=== PATIENT | male | born 1950 | race African-American/Black ===

== ENCOUNTER 2017-04-01 07:19 | Inpatient (IN) ==
--- NOTE | 2017-04-01 07:59 | EKG Report ---
Stationary ECG Study [facility] ER Test Date: 04/01/2017 7:45:44 AM Pat Name: KAEL NGO Department: Room: Gender: M Scalemaker: : 1950 Requested by: Eldon Bailey Order Number: [id number] Reading MD: ISABEL FANG Intervals [place] Rate: 88 P: 65 WA: 172 QRS: 119 QRSD: 152 T: -55 QT: 410 QTc: 456 Interpretive Statements SINUS RHYTHM LBBB Right axis deviation Electronically Signed On 04-01-17 12:29:34 CDT by ISABEL FANG [email or web address]
[2017-04-01 08:08] LABS: Basophils # 0.1 10*3/uL (0.0-0.2); Basophils % 0.7 % (0.0-0.8); Eosinophils # 0.1 10*3/uL (0.0-0.87); Eosinophils % 1.3 % (0.00-10.9); Hematocrit 43.6 VOL% (42.0-52.0); Hemoglobin 14.5 GM/DL (14.0-18.0); Immature Granulocytes % 0.3 %; Immature Granulocytes Absolute 0.03 #; Lymphocytes # 3.2 10*3/uL (1.4-4.0); Lymphocytes % 35.5 % (21.2-54.2); Mean Corpuscular HGB Conc 33.3 GM/DL (32-36); Mean Corpuscular Hemoglobin 28 PG (27-34); Mean Corpuscular Volume 82.6 FL (87-102); Mean Platelet Volume 12.3 FL (9.6-12.0); Monocytes # 0.5 10*3/uL (0.11-0.8); Monocytes % 5.4 % (1.7-12.7); Neutrophils # 5.1 10*3/uL (1.4-7.4); Neutrophils % 56.8 % (38.7-73.9); Platelet Count 177 T/CUMM (130-400); Red Blood Count 5.28 MC/CUMM (3.8-5.5); Red Cell Distribution Width 14.8 % (9.3-17.3)
[2017-04-01 08:16] LABS: Albumin 3.6 G/DL (3.4-5.0); Bilirubin,Total 1.4 MG/DL (0.2-1.0); Calcium 8.4 MG/DL (8.5-10.1); Total Protein 6.7 G/DL (6.4-8.3)
[2017-04-01 08:17] LABS: Osmolality,Calculated 284.8 MOS/KG (273-304); Potassium 3.4 MMOL/L (3.5-5.1)
--- NOTE | 2017-04-01 08:19 | CT Report ---
CT brain Indication: Syncope Comparison: None available Technique: Axial CT imaging of the brain is performed without contrast with 3 mm increments. Findings: No evidence of hemorrhage, mass mass effect midline shift or acute infarct seen. The brain parenchyma attenuation and differentiation appears within normal limits. The ventricles and cisterns are normal in caliber. No cranial or skull base abnormality is identified. Impression: No evidence of abnormality demonstrated. This CT exam was performed using one or more the following dose reduction techniques: Automated exposure control, adjustment of the MA and/or KV according to patient size, or use of iterative reconstruction technique. PROCEDURE INTERPRETED AT [facility] DEPARTMENT OF RADIOLOGY Final Report Signed by: Dr. Fritz Chowdhury
--- NOTE | 2017-04-01 08:34 | Emergency Department Note ---
Everette Barillas Manpreet, am scribing for, and in the presence of, Rajesh Hartley MD 08: 20. Odilia Barillas James D, MD, personally performed the services described in this documentation, ascribed by Sandeep Gaviria in my presence, and it is both accurate and complete 831 . Arrival - Arrival Chief Complaint: Syncope ED Nursing Triage Note: PT BROUGHT BY [facility] FOR EVALUATION OF SYNCOPE. PT WAS WEEDEATING WHEN HE BECAME DIZZY AND HAD SYNCOPAL EPISODE. PT DOES NOT RECALL ANYTHING AFTER FEELING DIZZY. ACCU CHECK PER EMS 140MG/DL. PT DENIES COMPLAINT AT THIS TIME. PT IS TILT NEGATIVE. Mode of Arrival: Stretcher Limitations: No Limitations Source: Patient - History of Present Illness HPI Narrative: Pt is a 66 y/o male who is brought to the ED via [facility] for further evaluation of a syncope earlier this AM. Pt was cutting grass when he became dizzy and had a syncopal episode. Pt does not recall anything after feeling dizzy. Pt denies Abd pain, palpations, fever, N/V/D and is AAO x4 which is his baseline. No other pains/complaints reported to the ED. Onset (ago): hour(s) Consistency: now resolved Severity: moderate Severity scale (1-10): 3 Allergies/Adverse Reactions: Allergies Allergy/AdvReac Type Severity Reaction Status Date / Time No Known Allergies Allergy Verified 04/01/17 07:30 Home Medications: Home Medications Medication Instructions Recorded Confirmed Type No Known Home Medications [No 04/01/17 04/01/17 History Known Home Medications] Review of System - Review of System 12 point system: reviewed and no additional remarkable complaints except as stated - Review of System Constitutional: Absent: chills, diaphoresis, fever Head/Ears/Nose/Throat: Absent: sore throat Respiratory: Absent: cough, respiratory distress Cardiovascular: Present: syncope. Absent: chest pain, dyspnea on exertion Gastrointestinal: Absent: abdominal pain, nausea, vomiting Genitourinary male: Absent: dysuria Musculoskeletal: Absent: arm pain, back pain Neurological: Present: other (Dizziness). Absent: headache, weakness Medical,Surgical,& Family Hx - Social History Smoking Status: Never smoker Frequency of Alcohol Use: Occasionally Type of Drug Use: None Exam Vital Signs: Vital Signs Temperature 96.9 F L 04/01/17 07:19 Pulse Rate 93 H 04/01/17 07:25 Respiratory Rate 18 04/01/17 07:19 Blood Pressure 160/84 04/01/17 07:25 O2 Sat by Pulse Oximetry 98 04/01/17 07:19 GENERAL: This is a well-nourished well-developed black male in no apparent distress. VITAL SIGNS: Reviewed HEENT: Head is atraumatic and normocephalic. Pupils are equal round react to light. Extraocular movements are intact. Oropharynx is benign with moist mucous membranes. NECK: Neck is soft and supple without tenderness. There are no masses. There is no lymphadenopathy. LUNGS: Lungs are clear to auscultation. Chest rises symmetrically. There is no chest wall tenderness. CV: Heart is regular rate and rhythm without murmurs or rubs. S3 gallop is present. ABDOMEN: Abdomen is soft, nontender to palpation. There are no abdominal abnormal masses palpated. There is no organomegaly. Bowel sounds are present and active. SKIN: Skin is warm and dry. No rash. EXTREMITIES: Patient has full range of motion without tenderness. There is no pedal edema. NEUROLOGIC: Awake alert and oriented 4. Cranial nerves II through XII are grossly intact. Motor is 5 over 5 in all extremities bilaterally. Results - Labs CBC & BMP: 04/01/17 07:36 04/01/17 07:36 Lab Results: I have reviewed the patients labs - EKG EKG results: interpreted by ERMD - Impressions EKG: Normal sinus rhythm with a rate of 88, left bundle branch block, no further interpretation possible. - Diagnostic Findings Procedure: Chest x-ray: image reviewed by me, CT: image reviewed by me (CT head : No acute intracranial lesion or hemorrhage.) Disposition Clinical Impression: Syncope, New onset left bundle branch block (LBBB) Case discussed with: patient, patient's family Disposition: Still a Patient Condition: Stable
[2017-04-01 08:37] LABS: Magnesium 2.4 MG/DL (1.8-2.4); Troponin I Only 0.018 NG/ML (0.00-0.045)
[2017-04-01] MEDS ORDERED: METOPROLOL TARTRATE 5 MG/5 ML VIAL IV STA (08:38)
[2017-04-01] MEDS ORDERED: METOPROLOL TARTRATE 5 MG/5 ML VIAL IV ONE (08:43)
[2017-04-01 09:01] LABS: Barbiturates Screen,Urine Negative (Negative); Benzodiazepines Screen,Urine Negative (Negative); Cannabinoid Screen,Urine Negative (Negative); Opiate Screen,Urine Negative (Negative); Phencyclidine Screen,Urine Negative (Negative)
--- NOTE | 2017-04-01 10:05 | Hospitalist History & Physical ---
<Gifty Darby - Last Filed: 04/01/17 10:19> Assessment and Plan - Time spent with patient Time spent with patient: Greater than 30 minutes (1) Syncope Status: Acute Assessment and plan: Will admit. ECHO is in progress in ED. Will order a.m. labs. Will order serial troponin and repeat EKG. Order Carotid doppler. Consult Cardiology. Current Visit: Yes (2) New onset left bundle branch block (LBBB) Status: Acute Current Visit: Yes History of Present Illness Chief complaint: Syncope History of present illness: Mr. Naylor is a 66 year old black male without any significance in PMHx; presented to the ED via EMS from [facility] where he was working for further evaluation of syncope. Patient reports he was cutting grass started feeling dizzy and "just blacked out". Patient reports unsure of how long he was out thinking it was only for a minute or less. He denies feeling short of breath. Denies chest pain, fever, chills, nausea, vomiting. IN the ED: HEAD CT: No evidence of abnormality demonstrated. EKG: normal sinus rhythm with rate 88; left bundle branch block. LABS: Troponin 0.018; K 3.4; Creatinine 1.40; BUN 11 ; Ca 8.4. Drug screen negative. Patient denies any medical history problems; denies any surgeries. Family Hx: HTN; DM. After discussion with Dr Harltey in the ED and Dr Lawson with Hospital Medicine, it was agreed to admit patient to Telemetry floor for further evaluation. There are no home medications to be reviewed or reconciled. Home Medications Medication Instructions Recorded Confirmed Type No Known Home Medications [No 04/01/17 04/01/17 History Known Home Medications] Allergies Allergy/AdvReac Type Severity Reaction Status Date / Time No Known Allergies Allergy Verified 04/01/17 07:30 Medical,Surgical,& Family Hx - Surgical History Surgical History: noncontributory - Family History Family History: Reports;: Family Diabetes, Family Hypertension - Social History Smoking Status: Never smoker Frequency of Alcohol Use: Rarely Type of Drug Use: None Lives With:: Children (lives with son) Functional capacity: independent ambulation Review of systems: ROS completed and pertinent positives and negatives in the HPI Exam - Constitutional Vitals: Period Temp Pulse Resp BP Sys/Larios Pulse Ox Last 24 Hr 96.8 F-96.9 F 93-101 18-18 160-166/84-94 98 General appearance: normal weight, no acute distress - Head Head exam: Present: normal inspection - Eye Eye exam: Present: EOMI Pupils: Present: JENNY - Neck Neck exam: Present: normal inspection. Absent: thyromegaly - Respiratory Respiratory exam: Present: clear to auscultation bilaterally - Cardiovascular Cardiovascular exam: Present: gallop (S3), regular rate and rhythm - GI/Abdominal GI/Abdominal exam: Present: normal bowel sounds, soft. Absent: tenderness, rebound - Extremities Exam Extremities exam: Present: full ROM. Absent: edema - Neurological Exam Neurological exam: Present: alert, oriented X3, CN II-XII intact - Psychiatric Psychiatric exam: Present: normal affect, normal mood. Absent: agitated, anxious - Skin Skin exam: Present: normal color, warm, dry Results - Labs CBC & BMP: 04/01/17 07:36 04/01/17 07:36 Lab Results: I have reviewed the past 24 hour labs - Diagnostic Findings Procedure: CT: report reviewed by me (head: no evidence of abnormality demonstracted.) <Triston Lawson - Last Filed: 04/01/17 11:16> History of Present Illness History of present illness: Mr. Naylor is a 66 year old male who is being admitted to the hospital today with the first episode of syncope. I have interviewed the patient, examined the patient, and reviewed all available laboratory tests and x-ray results. I agree with the assessment and plans as outlined by the nurse practitioner. Exam - Constitutional Vitals: Period Temp Pulse Resp BP Sys/Larios Pulse Ox Last 24 Hr 96.8 F-96.9 F 72-101 18-18 143-168/74-104 98-100 Results - Labs CBC & BMP: 04/01/17 07:36 04/01/17 07:36
[2017-04-01] MEDS ORDERED: ACETAMINOPHEN 325 MG TABLET PO PRN (10:11)
[2017-04-01] MEDS ORDERED: DOCUSATE SODIUM 100 MG CAPSULE PO PRN (10:11)
[2017-04-01] MEDS ORDERED: ONDANSETRON 4 MG/2 ML VIAL IV PRN (10:11)
[2017-04-01] MEDS ORDERED: MORPHINE 2 MG/1 ML SYRINGE IV PRN (10:11)
[2017-04-01] MEDS ORDERED: SODIUM CHLORIDE 0.9% 1,000 ML IV SCH (10:30)
[2017-04-01 16:23] LABS: Apearance,Urine CLEAR (Clear); Bilirubin,Urine Negative (Negative); Blood, Urine Small mg/dL (Negative); Glucose,Urine (UA) Negative (Negative); Ketones,Urine Negative (Negative); Mucus,Urine Occasional /LPF (Occasional); Nitrite,Urine Negative (Negative); Protein,Urine Negative; RBC,Urine 1 /HPF (0-4); Urine Color Yellow (Yellow); Urine Specific Gravity 1.011 (1.001-1.035); Urine Urobilinogen < 2.0 EU/DL (0.2-1.0); WBC,Urine 1 /HPF (0-6)
--- NOTE | 2017-04-01 17:07 | Cardiology Consult Note ---
Assessment and Plan - Time spent with patient Time spent with patient: Greater than 30 minutes (due to assessment, plan, and documentation) (1) Syncope Status: Acute Assessment and plan: See plan of care listed below. Current Visit: Yes (2) New onset left bundle branch block (LBBB) Status: Acute Assessment and plan: See plan of care listed below. Current Visit: Yes (3) Family history of coronary artery disease in father Status: Chronic Assessment and plan: See plan of care listed below. Current Visit: Yes History of Present Illness - Data of Consult Patient: new to practice Consult date: 04/01/17 Requesting Physician: Gifty Darby - Consult Narrative Reason for consult: syncope, LBBB History of present illness: Compliance Reviewer: iqra Leroy Mr. Naylor is a 66 year old male with no significant medical history. He takes no regular medications. Risk factors are significant for: age , family history of CAD. He is a lifetime nonsmoker. He denies a history of hypertension, diabetes, dyslipidemia, cancer, or stroke. Mr. Naylor presented to the emergency room via EMS after having a syncopal episode while working outside at [facility]. He was weedeating when he began to feel dizzy and reports he woke up on the ground surrounded by some of his coworkers. He reports he doesn't think he was out longer than a few minutes. He reports he felt dizzy when he first came to, but had no neurological deficits. He denies loss of bowel or bladder function and denies biting the inside of his cheek or tongue. He denies chest pain, palpitations, shortness of breath, fever, chills, nausea, vomiting, diarrhea, constipation, headache, or blurry vision. He tells me prior to today, he had been in his usual state of health and had no recent illnesses or complaints. Upon arrival, his head CT was unremarkable. EKG notes sinus rhythm with left bundle branch block. Initial troponin normal. Repeat troponin 0.141. Creatinine is 1.4. Potassium 3.4. Urinalysis is unremarkable and urine drug screen is negative. CBC is grossly unremarkable with stable H&H. ASSESSMENT/PLAN: 1. SYNCOPE - Will continue to cycle cardiac biomarkers and EKGs. Schedule for nuclear stress testing in the morning. Carotid dopplers and echocardiogram pending. 2. LEFT BUNDLE BRANCH BLOCK - Unsure whether new or old. No prior records at our facility. Will assume new. Echocardiogram is pending. After discussing with Dr. Leroy, will keep NPO after midnight and plan for nuclear stress testing in the morning. If his cardiac workup is unremarkable, would possibly be okay to discharge home with event recorder to follow up in clinic. Will develop further plan as evaluation unfolds. 3. FAMILY HISTORY OF CAD - He reports his father from a massive IA in his 60s. CC: Triston Lawson - Home Medications and Allergies Home Medications: Home Medications Medication Instructions Recorded Confirmed Type No Known Home Medications [No 04/01/17 04/01/17 History Known Home Medications] Allergies/Adverse Reactions: Allergies Allergy/AdvReac Type Severity Reaction Status Date / Time No Known Allergies Allergy Verified 04/01/17 07:30 12 point system: reviewed and no additional remarkable complaints except as stated Medical,Surgical,& Family Hx - Medical History Cardio: No history of: CAD, Hypertension, IA Endocrine: No history of: Diabetes Mellitus (NIDDM), Dyslipidemia Respiratory: No history of: COPD Gastrointestinal: No history of: GERD Other: No history of: Cancer - Surgical History Surgical History: noncontributory - Family History Family History: Reports;: Family Diabetes, Family Hypertension - Social History Smoking Status: Never smoker Frequency of Alcohol Use: Rarely Type of Drug Use: None Marital Status: Single Functional capacity: independent ambulation Physical Examination Vital Signs Temp Pulse Resp BP Pulse Ox 96.9 F L 93 H 18 160/84 98 04/01/17 07:19 04/01/17 07:19 04/01/17 07:19 04/01/17 07:19 04/01/17 07:19 Exam: General appearance: Pleasant and cooperative. Overweight, no acute distress. Head exam: Present: normal inspection, normocephalic, atraumatic. Absent: hematoma, laceration Eye exam: Present: EOMI. Absent: conjunctival injection, nystagmus, periorbital swelling, scleral icterus, laceration to eyelids Pupils: Present: PERRL. Absent: constricted, dilated, fixed, irregular, unequal ENT exam: Present: normal exam, normal external ear exam Neck exam: Present: normal inspection. Absent: lymphadenopathy, meningismus, tenderness, thyromegaly Respiratory exam: Present: clear to auscultation bilaterally. Absent: accessory muscle use, chest wall tenderness, rales, rhonchi, wheezing. Cardiovascular exam: Present: regular rate and rhythm. Absent: JVD, rubs, murmur GI/Abdominal exam: Present: normal bowel sounds, soft. Absent: distended, firm , guarding, hernia, mass, tenderness, rebound. Extremities exam: Present: normal inspection, normal capillary refill. Upper extremity pulses 2+. Lower extremity pulses 2+. Absent: calf tenderness, edema Musculoskeletal: Present: No Fluid Collection, No Pain, Normal Range of Motion Back exam: Present: normal inspection. Absent: muscle spasm, vertebral tenderness Neurological exam: Present: alert, oriented X3, grossly intact without resting or essential tremor Psychiatric exam: Present: normal affect, normal mood Skin exam: Present: normal color, warm, dry, intact. Absent: cyanosis, diaphoretic, rash, urticaria Result/EKG - Labs CBC & BMP: 04/01/17 07:36 04/01/17 07:36 Lab Results: I have reviewed the past 24 hour labs Labs: Laboratory Results - last 24 hr 04/01/17 04/01/17 04/01/17 07:36 07:36 07:36 WBC 9.0 RBC 5.28 Hgb 14.5 Hct 43.6 MCV 82.6 L MCH 28 MCHC 33.3 RDW 14.8 Plt Count 177 MPV 12.3 H Neut % (Auto) 56.8 Lymph % (Auto) 35.5 Iron % (Auto) 5.4 Eos % (Auto) 1.3 Baso % (Auto) 0.7 Neut # (Auto) 5.1 Lymph # (Auto) 3.2 Iron # (Auto) 0.5 Eos # (Auto) 0.1 Baso # (Auto) 0.1 Immature Gran % 0.3 Nucleated RBC % 0.0 Immature Gran # 0.03 Nucleated RBCs # 0.00 Immature Plt Fraction 0.0 Sodium 144 Potassium 3.4 L Chloride 107 Carbon Dioxide 30 Anion Gap 10.4 BUN 11 Creatinine 1.40 H GFR Calculation 66 BUN/Creatinine Ratio 7.00 Glucose 94 Calculated Osmolality 284.8 Calcium 8.4 L Magnesium Total Bilirubin 1.40 H AST 28 ALT 29 Alkaline Phosphatase 59 Troponin I Total Protein 6.7 Albumin 3.6 Globulin 3.1 Albumin/Globulin Ratio 1.1 Urine Color Urine Appearance Urine pH Ur Specific [place] Urine Protein Urine Glucose (UA) Urine Ketones Urine Blood Urine Nitrate Urine Bilirubin Urine Urobilinogen Urine Leukocytes Urine RBC Urine WBC Urine Mucus Ur Culture Indicated? Urine Opiates Screen Negative Ur Barbiturates Screen Negative Ur Phencyclidine Scrn Negative U Amphetamine/Methamph Negative U Benzodiazepines Scrn Negative U Cocaine Metab Screen Negative U Cannabinoids Screen Negative 04/01/17 04/01/17 04/01/17 07:36 07:56 13:11 WBC RBC Hgb Hct MCV MCH MCHC RDW Plt Count MPV Neut % (Auto) Lymph % (Auto) Iron % (Auto) Eos % (Auto) Baso % (Auto) Neut # (Auto) Lymph # (Auto) Iron # (Auto) Eos # (Auto) Baso # (Auto) Immature Gran % Nucleated RBC % Immature Gran # Nucleated RBCs # Immature Plt Fraction Sodium Potassium Chloride Carbon Dioxide Anion Gap BUN Creatinine GFR Calculation BUN/Creatinine Ratio Glucose Calculated Osmolality Calcium Magnesium 2.4 Total Bilirubin AST ALT Alkaline Phosphatase Troponin I 0.018 0.141 H D Total Protein Albumin Globulin Albumin/Globulin Ratio Urine Color Yellow Urine Appearance Clear Urine pH 7.0 Ur Specific [place] 1.011 Urine Protein Negative Urine Glucose (UA) Negative Urine Ketones Negative Urine Blood Small Urine Nitrate Negative Urine Bilirubin Negative Urine Urobilinogen < 2.0 H Urine Leukocytes Negative Urine RBC 1 Urine WBC 1 Urine Mucus Occasional Ur Culture Indicated? Not indicated Urine Opiates Screen Ur Barbiturates Screen Ur Phencyclidine Scrn U Amphetamine/Methamph U Benzodiazepines Scrn U Cocaine Metab Screen U Cannabinoids Screen - EKG EKG results: interpreted by me, sinus rhythm (left bundle branch block )
--- NOTE | 2017-04-01 18:20 | ECHO Report ---
[facility] Exam Date: 04/01/2017 08:58 Referring Physician: Technologist: chase Whaley ARDMS, RVT Age: 66 Ht (in): 68 Wt (lb): 165 Gender: M Exam Location: [facility] Echo Indications: Syncope and collapse, New LBBB BP: 154 / 88 HR: 78 Rhythm: Sinus Technical Quality: IMPRESSIONS Normal left ventricular cavity size. Normal left ventricular wall thickness. Moderate global hypokinesis, with abnormal septal motion. Estimated left ventricular ejection fraction 30%. Grade 3 diastolic dysfunction. Mild biatrial enlargement. Mild eccentric mitral regurgitation. Mild aortic valve insufficiency. Mild pulmonic valve insufficiency MEASUREMENTS (Male / Female) Normal Values 2D ECHO LV Diastolic Diameter PLAX 4.6 cm 4.2 - 5.9 / 3.9 - 5.3 cm LV Systolic Diameter PLAX 3.9 cm LV Fractional Shortening PLAX 16.1 % IVS Diastolic Thickness 1.1 cm 0.6 - 1.0 / 0.6 - 0.9 cm LVPW Diastolic Thickness 1.1 cm 0.6 - 1.0 / 0.6 - 0.9 cm RV Internal Dim ED PLAX 2.7 cm Aortic Root Diameter 3.4 cm LA Systolic Diameter LX 2.9 cm 3.0 - 4.0 / 2.7 - 3.8 cm DOPPLER TR Peak Velocity 252.0 cm/s TR Peak Gradient 25.4 mmHg FINDINGS Left Ventricle Normal left ventricular cavity size. Normal left ventricular wall thickness. Moderate global hypokinesis, with abnormal septal motion. Estimated left ventricular ejection fraction 30%. Grade 3 diastolic dysfunction. Right Ventricle The right ventricle is normal in size and function. Right Atrium The right atrium is mildly enlarged. Left Atrium The left atrium is mildly dilated Mitral Valve Morphologically normal mitral valve. Mild eccentric mitral valve regurgitation. Aortic Valve Structurally normal aortic valve, with mild insufficiency, without stenosis. Tricuspid Valve Morphologically normal tricuspid valve. Mild tricuspid valve regurgitation. Tricuspid regurgitation velocities suggest a PAP of 25 mmHg plus right atrial pressure. Pulmonic Valve Morphologically normal pulmonic valve. Mild pulmonary valve regurgitation. Pericardium Normal pericardium without effusion. Aorta Normal ascending aorta dimension. Patrice Leroy (Electronically Signed) Final Date: 01 April 2017 18:19
[2017-04-01] MEDS ORDERED: ASPIRIN 325 MG TABLET PO ONE (19:33)
[2017-04-01 23:54] LABS: Troponin I Only 0.098 NG/ML (0.00-0.045)
[2017-04-02 04:48] LABS: Basophils # 0.1 10*3/uL (0.0-0.2); Basophils % 0.6 % (0.0-0.8); Eosinophils # 0.1 10*3/uL (0.0-0.87); Eosinophils % 1.3 % (0.00-10.9); Hemoglobin 14.1 GM/DL (14.0-18.0); Immature Granulocytes % 0.2 %; Immature Granulocytes Absolute 0.02 #; Lymphocytes # 2.5 10*3/uL (1.4-4.0); Lymphocytes % 28.9 % (21.2-54.2); Mean Corpuscular HGB Conc 33.6 GM/DL (32-36); Mean Corpuscular Hemoglobin 28 PG (27-34); Mean Platelet Volume 12.7 FL (9.6-12.0); Monocytes # 0.7 10*3/uL (0.11-0.8); Monocytes % 8.1 % (1.7-12.7); Neutrophils # 5.2 10*3/uL (1.4-7.4); Neutrophils % 60.9 % (38.7-73.9); Platelet Count 171 T/CUMM (130-400); Red Blood Count 5.12 MC/CUMM (3.8-5.5); Red Cell Distribution Width 14.9 % (9.3-17.3); White Blood Count 8.5 T/CUMM (4-12)
[2017-04-02 05:40] LABS: Magnesium 2.7 MG/DL (1.8-2.4); Potassium 3.9 MMOL/L (3.5-5.1); Risk Ratio 2.43; Thyroid Stimulating Hormone 0.22 uIU/ml (0.358-3.74); VLDL CHOLESTEROL 14.6 MG/DL
--- NOTE | 2017-04-02 07:23 | EKG Report ---
Stationary ECG Study [facility] Test Date: 04/02/2017 7:23:17 AM Pat Name: KALE NGO Department: Room: 293 Gender: M Subcontracts Manager: MEKHI : 1950 Requested by: Gifty Darby Order Number: [id number] Reading MD: CAIN HERBERT Intervals [place] Rate: 75 P: 71 [place]: 177 QRS: 117 QRSD: 153 T: -61 QT: 442 QTc: 471 Interpretive Statements SINUS RHYTHM INTRAVENTRICULAR CONDUCTION DELAY Electronically Signed On 04-02-17 18:18:35 CDT by CAIN HERBERT [email or web address]
--- NOTE | 2017-04-02 09:08 | Event Note ---
Mr. Naylor underwent stress testing without difficulty this morning. EKG prior to stress test noted left bundle branch block with diffuse ST depression. During stress, he had deepening of T waves and deepening ST depression, overall equivocal. He had no chest pain, heaviness, or tightness. He was noted to have good exercise tolerance and only had mild dyspnea. NO dizziness, lightheadedness, or syncope noted. Patient now to nuclear medicine for final scan. Dr. Leroy to read, interpret, and advise.
--- NOTE | 2017-04-02 09:09 | Cardiology Progress Note ---
Assessment and Plan - Time spent with patient Time spent with patient: Less than 30 minutes (1) Syncope Status: Acute Assessment and plan: See plan of care listed below. Current Visit: Yes (2) New onset left bundle branch block (LBBB) Status: Acute Assessment and plan: See plan of care listed below. Current Visit: Yes (3) Family history of coronary artery disease in father Status: Chronic Assessment and plan: See plan of care listed below. Current Visit: Yes (4) Cardiomyopathy Status: Acute Assessment and plan: See plan of care listed below. Current Visit: Yes (5) Hypertension Status: Acute Assessment and plan: See plan of care listed below. Current Visit: Yes Cardiology - PN: Subj Interval history: [employer]: new to Dr. Rad SALDANA: Mr. Naylor is a 66 year old male with no significant medical history who presented to the ER after a syncopal episode. Head CT was negative. Initial EKG showed LBBB. Cardiology was consulted. Echocardiogram revealed moderate global hypokinesis with abnormal septal motion and EF 30%, grade 3 diastolic dysfunction, mild biatrial enlargement, mild MR, mild aortic insufficiency, mild pulmonic insufficiency. APRIL 02, 2017 UPDATE: Patient underwent nuclear stress testing without difficulty. Patient reports some dizziness this morning, no other complaints. Lipid panel revealed triglycerides 73, cholesterol 158, LDL 80, HDL 65. BNP was 75, TSH 0.22. Will await additional recommendations from Dr. Leroy. ASSESSMENT/PLAN: 1. SYNCOPE - EKG continues to show LBBB. Patient had trivial troponins in the setting of renal insufficiency, normal CK-MB and CPK. Carotid dopplers pending. 2. LEFT BUNDLE BRANCH BLOCK - Unsure whether new or old. No prior records at our facility. Will assume new. Echocardiogram revealed new cardiomyopathy. Stress test results pending. 3. FAMILY HISTORY OF CAD - He reports his father from a massive MO in his 60s. 4. CARDIOMYOPATHY - Unsure whether ischemic or nonischemic. Echo revealed ejection fraction 30%. Blood pressure has been mildly elevated during hospitalization. Will start low dose beta rosalva. Until further discussing with Dr. Leroy, will hold off on initiating MESFIN/ARB due to mild renal insufficiency. Creatinine 1.4 with GFR 66. Continue ASA, beta rosalva. 5. HYPERTENSION - Will start low dose beta rosalva and continue to monitor. Exam (Progress Note) - Constitutional Vitals: Period Temp Pulse Resp BP Sys/Larios Pulse Ox Last 24 Hr 97.5 F-98.2 F 68-80 16-20 143-176/74-104 98-100 Exam: General appearance: Pleasant and cooperative. Overweight, no acute distress. Head exam: Present: normal inspection, normocephalic, atraumatic. Absent: hematoma, laceration Eye exam: Present: EOMI. Absent: conjunctival injection, nystagmus, periorbital swelling, scleral icterus, laceration to eyelids Pupils: Present: PERRL. Absent: constricted, dilated, fixed, irregular, unequal ENT exam: Present: normal exam, normal external ear exam Neck exam: Present: normal inspection. Absent: lymphadenopathy, meningismus, tenderness, thyromegaly Respiratory exam: Present: clear to auscultation bilaterally. Absent: accessory muscle use, chest wall tenderness, rales, rhonchi, wheezing. Cardiovascular exam: Present: regular rate and rhythm. Absent: JVD, rubs GI/Abdominal exam: Present: normal bowel sounds, soft. Absent: distended, firm , guarding, hernia, mass, tenderness, rebound. Extremities exam: Present: normal inspection, normal capillary refill. Upper extremity pulses 2+. Lower extremity pulses 2+. Absent: calf tenderness, edema Musculoskeletal: Present: No Fluid Collection, No Pain, Normal Range of Motion Back exam: Present: normal inspection. Absent: muscle spasm, vertebral tenderness Neurological exam: Present: alert, oriented X3, grossly intact without resting or essential tremor Psychiatric exam: Present: normal affect, normal mood Skin exam: Present: normal color, warm, dry, intact. Absent: cyanosis, diaphoretic, rash, urticaria Result/EKG - Labs CBC & BMP: 04/02/17 02:58 04/02/17 02:58 Lab Results: I have reviewed the past 24 hour labs Labs: Laboratory Results - last 24 hr 04/01/17 04/01/17 04/01/17 07:56 13:11 18:29 WBC RBC Hgb Hct MCV MCH MCHC RDW Plt Count MPV Neut % (Auto) Lymph % (Auto) [place] % (Auto) Eos % (Auto) Baso % (Auto) Neut # (Auto) Lymph # (Auto) Johnston # (Auto) Eos # (Auto) Baso # (Auto) Immature Gran % Nucleated RBC % Immature Gran # Nucleated RBCs # Immature Plt Fraction Sodium Potassium Chloride Carbon Dioxide Anion Gap BUN Creatinine GFR Calculation BUN/Creatinine Ratio Glucose Hemoglobin A1c Calculated Osmolality Calcium Magnesium Total Creatine Kinase 182 CK-MB (CK-2) 2.0 Troponin I 0.141 H D 0.110 H D B-Natriuretic Peptide Triglycerides Cholesterol LDL Cholesterol VLDL Cholesterol HDL Cholesterol Heart Disease Risk Ratio Free T4 TSH 3rd Generation Urine Color Yellow Urine Appearance Clear Urine pH 7.0 Ur Specific [place] 1.011 Urine Protein Negative Urine Glucose (UA) Negative Urine Ketones Negative Urine Blood Small Urine Nitrate Negative Urine Bilirubin Negative Urine Urobilinogen < 2.0 H Urine Leukocytes Negative Urine RBC 1 Urine WBC 1 Urine Mucus Occasional Ur Culture Indicated? Not indicated 04/01/17 04/02/17 04/02/17 22:35 02:58 02:58 WBC 8.5 RBC 5.12 Hgb 14.1 Hct 42.0 MCV 82.0 L MCH 28 MCHC 33.6 RDW 14.9 Plt Count 171 MPV 12.7 H Neut % (Auto) 60.9 Lymph % (Auto) 28.9 Johnston % (Auto) 8.1 Eos % (Auto) 1.3 Baso % (Auto) 0.6 Neut # (Auto) 5.2 Lymph # (Auto) 2.5 Johnston # (Auto) 0.7 Eos # (Auto) 0.1 Baso # (Auto) 0.1 Immature Gran % 0.2 Nucleated RBC % 0.0 Immature Gran # 0.02 Nucleated RBCs # 0.00 Immature Plt Fraction 0.0 Sodium 143 Potassium 3.9 Chloride 105 Carbon Dioxide 30 Anion Gap 11.9 BUN 17 Creatinine 1.40 H GFR Calculation 66 BUN/Creatinine Ratio 12.00 Glucose 81 Hemoglobin A1c Calculated Osmolality 285.0 Calcium 9.0 Magnesium 2.7 H Total Creatine Kinase 164 CK-MB (CK-2) 1.5 Troponin I 0.098 H B-Natriuretic Peptide Triglycerides 73 Cholesterol 158 LDL Cholesterol 80.0 VLDL Cholesterol 14.6 HDL Cholesterol 65 H Heart Disease Risk Ratio 2.43 Free T4 TSH 3rd Generation 0.220 L Urine Color Urine Appearance Urine pH Ur Specific [place] Urine Protein Urine Glucose (UA) Urine Ketones Urine Blood Urine Nitrate Urine Bilirubin Urine Urobilinogen Urine Leukocytes Urine RBC Urine WBC Urine Mucus Ur Culture Indicated? 04/02/17 04/02/17 04/02/17 02:58 02:58 02:58 WBC RBC Hgb Hct MCV MCH MCHC RDW Plt Count MPV Neut % (Auto) Lymph % (Auto) Johnston % (Auto) Eos % (Auto) Baso % (Auto) Neut # (Auto) Lymph # (Auto) Johnston # (Auto) Eos # (Auto) Baso # (Auto) Immature Gran % Nucleated RBC % Immature Gran # Nucleated RBCs # Immature Plt Fraction Sodium Potassium Chloride Carbon Dioxide Anion Gap BUN Creatinine GFR Calculation BUN/Creatinine Ratio Glucose Hemoglobin A1c 5.8 Calculated Osmolality Calcium Magnesium Total Creatine Kinase CK-MB (CK-2) Troponin I B-Natriuretic Peptide 75 Triglycerides Cholesterol LDL Cholesterol VLDL Cholesterol HDL Cholesterol Heart Disease Risk Ratio Free T4 0.81 TSH 3rd Generation Urine Color Urine Appearance Urine pH Ur Specific [place] Urine Protein Urine Glucose (UA) Urine Ketones Urine Blood Urine Nitrate Urine Bilirubin Urine Urobilinogen Urine Leukocytes Urine RBC Urine WBC Urine Mucus Ur Culture Indicated? - EKG EKG results: interpreted by me, sinus rhythm (left bundle branch block)
[2017-04-02] MEDS: ASPIRIN EC 81 MG TABLET PO SCH (09:52)
[2017-04-02] MEDS: PANTOPRAZOLE 40 MG TABLET PO SCH (09:52)
[2017-04-02] MEDS: CARVEDILOL 3.125 MG TABLET PO SCH ×2 (09:52→22:07)
--- NOTE | 2017-04-02 10:55 | Hospitalist Progress Note ---
Assessment and Plan (1) Cardiomyopathy Status: Acute Assessment and plan: Echocardiogram demonstrated LVEF 30%. He is not experiencing shortness of breath. I have begun him on carvedilol, lisinopril, hydralazine, and isosorbide dinitrate. He has been seen in consultation by cardiology. He is undergoing a stress nuclear test today. Current Visit: Yes Qualifiers: Cardiomyopathy type: dilated Qualified Code(s): I42.0 - Dilated cardiomyopathy (2) Hypertension Status: Acute Assessment and plan: His blood pressure today is 152/80. He has been begun on carvedilol, lisinopril , hydralazine, and isosorbide dinitrate. Current Visit: Yes Qualifiers: Hypertension type: essential hypertension Qualified Code(s): I10 - Essential (primary) hypertension (3) Syncope Status: Acute Assessment and plan: Resolved. Carotid duplex Doppler exam demonstrates no significant abnormalities. Current Visit: Yes Hospitalist: Subjective Interval history: Patient is doing well today. He is experienced no further episodes of loss of consciousness. He is not experiencing chest pain or shortness of breath. An echocardiogram demonstrated severe left ventricular systolic dysfunction with LVEF 30%. Laboratory testing demonstrated creatinine of 1.4 compatible with mild chronic kidney disease. He has been seen in consultation by cardiology. He has been begun on carvedilol. I will begin him on lisinopril, hydralazine, and isosorbide dinitrate. He is to undergo a stress nuclear test today. Exam - Constitutional Vitals: Period Temp Pulse Resp BP Sys/Larios Pulse Ox Last 24 Hr 97.5 F-98.2 F 68-80 16-20 143-176/75-104 95-100 General appearance: normal weight, no acute distress - Head Head exam: Present: normal inspection - Neck Neck exam: Present: normal inspection - Respiratory Respiratory exam: Present: clear to auscultation bilaterally - Cardiovascular Cardiovascular exam: Present: regular rate and rhythm - GI/Abdominal GI/Abdominal exam: Present: normal bowel sounds, soft, other (Nontender with no palpable masses or hepatosplenomegaly.) - Extremities Exam Extremities exam: Present: normal inspection - Neurological Exam Neurological exam: Present: alert, oriented X3 - Skin Skin exam: Present: normal color, warm, intact Results - Labs CBC & BMP: 04/02/17 02:58 04/02/17 02:58 - EKG EKG results: no acute changes
[2017-04-02] MEDS ORDERED: POTASSIUM CHLORIDE RIDER 10 MEQ in PREMIX 1 EACH IV PRN (12:07)
[2017-04-02] MEDS ORDERED: MAGNESIUM SULF RIDER 2 GM in PREMIX 1 EACH IV PRN (12:07)
[2017-04-02] MEDS ORDERED: diphenhydrAMINE CAP 25 MG CAPSULE PO ONE (12:07)
[2017-04-02] MEDS ORDERED: DIAZEPAM 5 MG TABLET PO ONE (12:07)
--- NOTE | 2017-04-02 12:26 | Event Note ---
The patient's chart reviewed patient interviewed and examined. The patient with some abnormality in his current perfusion study with cardiomyopathy. Patient for cardiac catheterization to evaluate for underlying coronary ischemia. I have discussed this procedure with the patient and his attending family reviewing the indication procedure how would be carried out the risk. I discussed cardiac catheterization and percutaneous coronary intervention with the patient and available family. I reviewed with them the indications for the procedure and the basis of how the procedure would be carried out. I also reviewed with them the risk of the procedure which include but not necessarily limited to access site bleeding, bruising, pain, swelling or vascular injury that may require emergency vascular surgery, blood transfusion, or thrombin injection. Also discussed the possibility of stroke, myocardial infarction, arrhythmia which may require electrocardioversion, and the possibility of dye reaction that would require medical therapy. Also discussed the possibility of coronary artery injury, ruptured, closure or perforation that may require emergency bypass surgery. We also discussed the possibility of from a major complication. Their questions answered. They voice understanding and agree to proceed.
--- NOTE | 2017-04-02 12:49 | Ultrasound Report ---
History: Syncope Date: 04/02/2017 Study: Carotid duplex ultrasound Comparison exam: No previous similar study available for comparison Color Doppler, wave form analysis, and grayscale analysis of the cervical carotid arteries was performed. There is no significant plaque in either carotid bulb. Waveform analysis shows proper directional flow of the cervical carotid arteries. There is antegrade flow in either vertebral artery. The distal right ICA measures 4.6 mm diameter; the left measures 4.7 mm diameter. Right Side Flow velocities centimeters per second Common carotid artery:52.0 Proximal ICA:59.9 Distal ICA:99.0 External carotid artery:65.1 Vertebral artery:41.6 ICA/CCA ratio: 1.9 Left SIde Flow velocities centimeters per second Common carotid artery 67.7 Proximal ICA:76.8 Distal ICA:80.7 External carotid artery:74.2 Vertebral artery:30.3 ICA/CCA ratio: 1.2 There is 0-15% diameter reduction narrowing of either internal carotid artery using indirect NASCET criteria. Ultrasound images were captured and archived. Impression: No hemodynamically significant internal carotid artery stenosis PROCEDURE INTERPRETED AT [facility] DEPARTMENT OF RADIOLOGY Final Report Signed by: Dr. Shaylee Buenrostro
[2017-04-02] MEDS ORDERED: LIDOCAINE 1% 20 ML VIAL ONE (12:52)
[2017-04-02] MEDS ORDERED: NITROGLYCERIN DRIP 50 MG/250 ML BOTTLE IV ONE (12:52)
[2017-04-02] MEDS ORDERED: VERAPAMIL 5 MG/2 ML VIAL ONE (12:53)
[2017-04-02] MEDS ORDERED: fentaNYL 100 MCG/2 ML VIAL ONE (12:53)
[2017-04-02] MEDS ORDERED: MIDAZOLAM 2 MG/2 ML VIAL ONE (12:53)
--- NOTE | 2017-04-02 12:56 | History and Physical Update ---
Sedation H&P Update - History and Physical H&P was reviewed, the patient examined and there: are no changes in the patients condition since last H&P was completed. - Dictation Physical: refer to H&P completed by admitting physician - Physical Exam Mental Status: alert and oriented Heart: regular rate and rhythm Lung: clear to auscultation Abdomen: within normal limits Vitals: within normal limits History and Physical Changes: None - Sedation Plan for Sedation: moderate Patient Consent: Procedure disscussed with patient and patinet has consented., Risks and benefits were discussed with patient,including infection,, bleeding, injury to surrounding structures, seizure, temporary nerve, Patient understands and accepts potential risks/benefits and agrees to, proceed. ASA Class: III Airway Assessment: Class III: Soft palate, base of uvula visible
[2017-04-02] MEDS ORDERED: ENOXAPARIN 30 MG/0.3 ML SYRINGE ONE (13:06)
--- NOTE | 2017-04-02 13:25 | Operative Note ---
Date of procedure: 04/02/17 Procedure Preformed: Left heart cath with selective left and right coronary angiograms without LV gram from right radial approach. Surgeon / Physician: Pierce Hayes Vulcan Crewmember: Neena Prescott Post-op diagnosis: same Findings: Widely patent coronary arteries without stenosis. Specimens: none sent Estimated blood loss: minimal Condition: stable Anesthesia: local, conscious sedation Disposition: floor
[2017-04-02] MEDS ORDERED: SODIUM CHLORIDE 0.9% 1,000 ML IV SCH (13:30)
--- NOTE | 2017-04-02 13:46 | Cardiac Catheterization ---
Date of Procedure:: 04/02/17 Pre-op Diagnosis: Abnormal stress study with cardiomyopathy possible ischemic. Post-op diagnosis: same Procedure: LEFT HEART CATHETERIZATION History: 66-year-old man who has abnormal cardiac perfusion study and cardiomyopathy. Evaluation for ischemic heart disease. Pre-Op diagnosis: Cardiomyopathy possible ischemic. Postoperative diagnosis: Normal coronary arteries. Procedures: 1. Left heart catheterization. 2. Selective left and right coronary angiograms. Equipment: Terumo 6 Sammarinese radial glide arterial sheath, Terumo 6 Sammarinese radial TIG 4.0 diagnostic. Medium TR band. Medications: Preoperative Benadryl and Valium given by mouth. Lidocaine 1% local anesthesia 0.5 mls administered by myself. Intraprocedure patient received Versed 1 mgs IVP, fentanyl 50 mcgs IVP, Verapamil 5 mg/NTG 200 mcg in 5 ml NS; Lovenox 30 mgs IVP. Complications: None immediate. Contrast: Omnipaque 29 milliliters. Description of procedure: After informed consent the patient was given preoperative medications and brought to the catheterization laboratory where their right groin and right anterior wrist and forearm was prepped and draped in usual fashion. IV sedation was then obtained after which local anesthesia with lidocaine was administered over the right radial artery. Using the double wall needle the radial artery was cannulated. Microguidewire was advanced through the cannula into the radial artery. We exchanged for the radial artery sheath that was advanced over the microguidewire. Guidewire was removed. The diagnostic 6 Sammarinese TIG 4.0 catheter was advanced and used to cross the aortic valve and left ventricular pressures were measured with LVEDP. Left ventricular angiogram was then obtained in the right oblique view. Pressures were again measured in the left ventricle with pullback pressures were then measured in the aortic root. This same catheter was then used to cannulate the left and then right coronary arteries of which angiograms were obtained of each of these vessels in multiple projections. The angiograms were then reviewed. The diagnostic catheter was then removed over the guidewire. The TR band was then placed in the usual fashion and hemostasis obtained. Hemodynamic data: LV 156/11 , EDP 20 ; AO root 140/91 , mean 112 . Review of tracings reveal no gradient. Left ventricular angiogram: This was not done secondary to creatinine and we had LV function on 2 different other studies. Left main coronary artery angiogram: Left main coronary is large without stenosis or disease. It bifurcates LAD and circumflex arteries. Circumflex artery is a large caliber vessel proximally gives rise very proximally to a medium caliber Left anterior descending artery angiogram: LAD is medium large size vessel proximally that extends around the posterior apex. First our branches small- caliber vessel with a medium caliber second diagonal branch. The LAD proper branches without stenosis or disease. Circumflex artery angiogram: First obtuse marginal branch a large second obtuse marginal branch cause a larger myocardium. Beyond this is surface continues and distally gives rise to a small posterior ventricular branches. There is no stenosis or disease in the circumflex artery proper branches. Right coronary artery angiogram: RCA is a large dominant vessel. PDA is a large caliber vessel extending to the posterior apex were it bifurcates and cause a larger myocardium. Post lateral branches beyond that are small-caliber vessels and long. Adenoid his takeoff the distal RCA. There is no stenosis or other disease in the RCA proper branches. Impression: 1. Left ventricular angiogram not done. 2. LVEDP is mildly elevated. 3. There is no gradient across the aortic valve any significance. 4. Right and left coronary systems are without stenosis disease of the pathology. Discussion: We will marked the patient post catheterization. We do not find disease that would account for his cardiomyopathy. No further evaluation is indicated at this time. He will continue his therapy for his cardiomyopathy. Implants: None Anesthesia: local, moderate conscious sedation Surgeon / Physician: Pierce Hayes Estimated blood loss: minimal Specimens: none sent Condition: stable Disposition: floor - Medications / Follow-up
--- NOTE | 2017-04-02 14:39 | Nuclear Medicine Report ---
EXERCISE STRESS TEST Dictated and interpreted by Dr. Patrice Leroy. INDICATION: Syncopal left bundle branch block, elevated cardiac biomarkers. PROCEDURE: At rest, 10 mCi of 99-Technetium labeled Sestamibi was injected and rest images were obtained. The patient then exercised according to the Ismael treadmill stress protocol. At peak stress, 30 mCi of 99-Technetium labeled Sestamibi was injected and post-stress images were obtained. FINDINGS: At rest, sinus rhythm, 86 beats per minute, blood pressure 160/82 mmHg. Left bundle branch. The patient exercised for 4 minutes, 45 seconds, achieving a peak heart rate of 149 beats per minute, 9 to 6% of maximum, age- appropriate predicted heart rate. The blood pressure brittany to 179/75 mmHg. At peak stress, PVCs and 5 beat-run, no sustained ventricular tachycardia was noted. There was no chest pain. The test was stopped due to achieving the submaximal age-predicated heart rate. Rest and post stress gated and perfusion images are very good. The left ventricular is 109 cc end-diastolic, 65 cc end- systolic. The calculated left ventricular ejection fraction is 40%. The inferior apical segment is severely hypokinetic. The remaining segmental is moderately hypokinetic. Perfusion images show a large area in the mid and apical inferoseptal region of severely decreased activity both at rest and post stress, suggesting old myocardial disease, without ischemia. In addition, there is a small area in the mid anterior region of mildly decreased activity at rest, with moderately decreased activity, post stress, suggestive of myocardial ischemia. CONCLUSION: 1. CLINICALLY NEGATIVE, ELECTRICALLY NONDIAGNOSTIC SUBMAXIMAL EXERCISE STRESS TEST. LEPE TREADMILL STRESS SCORE IS 4. PEAK EXERTION 4.6 METS, FAIR EXERCISE TOLERANCE. 2. NORMAL LEFT VENTRICULAR SIZE, WITH MODERATELY DECREASED SYSTOLIC FUNCTION, WITH INFERIOR/APICAL HYPOKINESIS, MORE PROMINENT THAN IN THE REMAINING SEGMENTS. OLD INFEROSEPTAL/APICAL DISEASE. IN ADDITION, AN AREA OF MYOCARDIAL ISCHEMIA IN MID ANTERIOR REGION. 3. NONSUSTAINED VENTRICULAR TACHYCARDIA WITH EXERTION. 4. THIS IS A HIGH RISK TEST FOR FUTURE CARDIOVASCULAR EVENTS. Procedure performed and interpreted at [facility] Department of Radiology. [facility]
[2017-04-02] MEDS: hydrALAZINE 10 MG TABLET PO SCH ×2 (16:14→22:07)
--- NOTE | 2017-04-02 17:06 | Event Note ---
Patient is doing well post catheterization. His right wrist is stable from catheterization for the radial approach. He had normal coronaries. From our standpoint with the catheterization he can go home tomorrow if not even later today.
--- NOTE | 2017-04-02 17:33 | Event Note ---
Patient has severe nonischemic cardiomyopathy, presented with syncope. Has left bundle branch block. Ejection fraction 30% High risk for malignant arrhythmia. We will set him up with a LifeVest.
[2017-04-02] MEDS: LISINOPRIL 10 MG TABLET PO SCH (22:07)
[2017-04-03] MEDS ORDERED: ISOSORBIDE MONONITRATE 30 MG TABLET PO SCH (09:00)
[2017-04-03] MEDS: PANTOPRAZOLE 40 MG TABLET PO SCH (09:31)
[2017-04-03] MEDS: hydrALAZINE 10 MG TABLET PO SCH (09:31)
[2017-04-03] MEDS: CARVEDILOL 3.125 MG TABLET PO SCH (09:31)
[2017-04-03] MEDS: ASPIRIN EC 81 MG TABLET PO SCH (09:31)
[2017-04-03] MEDS: LISINOPRIL 10 MG TABLET PO SCH (09:34)
--- NOTE | 2017-04-03 09:47 | Hospitalist Progress Note ---
<Palma Cyr - Last Filed: 04/03/17 09:45> Assessment and Plan (1) Cardiomyopathy Status: Acute Assessment and plan: Cardiac catheterization performed on yesterday. The patient had normal coronary arteries upon assessment. Echocardiogram left ventricular ejection fraction at 30%. We will continue aspirin, Coreg, and lisinopril per cardiology recommendation. We agree with tower hoist operator recommendation to start Lasix if the patient starts to develop shortness of breath. The patient has been prescribed a LifeVest. We will await LifeVest placement and reassess for appropriateness for discharge. Current Visit: Yes Qualifiers: Cardiomyopathy type: dilated Qualified Code(s): I42.0 - Dilated cardiomyopathy (2) Hypertension Status: Acute Assessment and plan: We will continue Coreg and lisinopril as previously ordered. Spoke with patient in great detail regarding the need to adhere to the suggested medical treatment and medical compliance. The patient acknowledges understanding of instructions. The patient has been instructed to establish care after discharge. Current Visit: Yes Qualifiers: Hypertension type: essential hypertension Qualified Code(s): I10 - Essential (primary) hypertension (3) Chronic kidney disease Status: Acute Assessment and plan: The patient's hypertension has not been well maintained in the past. This is evident in his current left ventricular ejection fraction which was noted at 30 % and renal insufficiency with his creatinine noted at 1.40. At the time of ED presentation, the patient's creatinine was noted at 1.40. It is safe to say that this is the patient's baseline. We will avoid all nephrotoxic agents and monitor renal function. Spoke with the patient in great detail regarding the need to maintain medical compliance. Current Visit: Yes Hospitalist: Subjective Interval history: Patient seen and examined. Chart reviewed. Status post heart catheterization on yesterday. We appreciate cardiology's input during the clinical encounter. We agree with tower hoist operator plan for LifeVest placement. If patient obtains LifeVest today; we may discharge later this afternoon. Exam - Constitutional Vitals: Period Temp Pulse Resp BP Sys/Larios Pulse Ox Last 24 Hr 97 F-98.8 F 67-94 16-20 113-168/58-85 92-99 General appearance: normal weight, no acute distress - Head Head exam: Present: normal inspection, normocephalic - Eye Eye exam: Present: EOMI, conjunctival injection Pupils: Present: JENNY, normal accommodation - ENT ENT exam: Present: normal exam, normal external ear exam, normal oropharynx - Neck Neck exam: Present: normal inspection. Absent: lymphadenopathy, meningismus, thyromegaly - Respiratory Respiratory exam: Present: clear to auscultation bilaterally. Absent: rales, rhonchi, stridor, wheezes - Cardiovascular Cardiovascular exam: Present: regular rate and rhythm. Absent: carotid bruit, diastolic murmur, gallop, JVD, rubs, systolic murmur - GI/Abdominal GI/Abdominal exam: Present: normal bowel sounds, soft - Extremities Exam Extremities exam: Present: normal inspection, normal capillary refill, full ROM , edema - Back Exam Back exam: Present: normal inspection - Neurological Exam Neurological exam: Present: alert, oriented X3, CN II-XII intact - Psychiatric Psychiatric exam: Present: normal affect - Skin Skin exam: Present: normal color, warm, dry Results - Labs CBC & BMP: 04/02/17 02:58 04/02/17 02:58 Lab Results: I have reviewed the past 24 hour labs Quality Measures - VTE Contraindication to Pharmacological VTE Prophylaxis: High Risk of Bleeding Specialty Discharge - Follow Up or Referrals <Triston Lawson - Last Filed: 04/03/17 10:43> Assessment and Plan (1) Cardiomyopathy Status: Acute Current Visit: Yes Qualifiers: Cardiomyopathy type: dilated Qualified Code(s): I42.0 - Dilated cardiomyopathy (2) Hypertension Status: Acute Current Visit: Yes Qualifiers: Hypertension type: essential hypertension Qualified Code(s): I10 - Essential (primary) hypertension (3) Syncope Status: Acute Current Visit: Yes Hospitalist: Subjective Interval history: Mr. Naylor is doing very well. He is not experiencing shortness of breath or chest pain. He underwent cardiac catheterization yesterday demonstrating normal coronary arteries and severe LV systolic dysfunction with LVEF 30%. He is presently being treated with lisinopril, carvedilol, isosorbide dinitrate, hydralazine, and Spironolactone. He is to receive a life vest today, following which he will be discharged. Exam - Constitutional Vitals: Period Temp Pulse Resp BP Sys/Larios Pulse Ox Last 24 Hr 97 F-98.8 F 67-94 16-20 113-168/58-85 92-99 Results - Labs CBC & BMP: 04/02/17 02:58 04/02/17 02:58
[2017-04-03 12:32] VITALS: BP 127/72
--- NOTE | 2017-04-03 13:37 | Cardiology Progress Note ---
Assessment and Plan (1) Syncope Status: Acute Assessment and plan: 66-year-old black male, with an episode of syncope, newly diagnosed left bundle branch block. Echo confirmed severe cardiomyopathy, ejection fraction 30%. Borderline elevated troponin. Stress test showed severe dilated cardiomyopathy, evidence of old myocardial disease, with superimposed ischemia. He had nonsustained VT with stress. LHC: severe Nonischemic cardiomyopathy. -He is stable to go home on current medical regimen. -Use LifeVest. Syncope in context of his structural disease is high risk. -Follow-up with cardiology in 2 weeks. -If cardiomyopathy not resolving with medical regimen, he will be a candidate for ENVIRONMENTAL SYSTEMS COORDINATOR-D Current Visit: Yes (2) New onset left bundle branch block (LBBB) Status: Acute Current Visit: Yes (3) Family history of coronary artery disease in father Status: Chronic Current Visit: Yes (4) Cardiomyopathy Status: Acute Current Visit: Yes Qualifiers: Cardiomyopathy type: dilated Qualified Code(s): I42.0 - Dilated cardiomyopathy (5) Hypertension Status: Acute Current Visit: Yes Qualifiers: Hypertension type: essential hypertension Qualified Code(s): I10 - Essential (primary) hypertension (6) Chronic kidney disease Status: Acute Current Visit: Yes Cardiology - PN: Subj Interval history: He is feeling fine. No symptoms with light activity. Getting set up with LifeVest. Exam (Progress Note) - Constitutional Vitals: Period Temp Pulse Resp BP Sys/Larios Pulse Ox Last 24 Hr 97 F-98.8 F 67-94 18-20 113-156/58-85 92-99 General appearance: normal weight, no acute distress - Head Head exam: Present: normal inspection, normocephalic - Eye Eye exam: Absent: conjunctival injection, scleral icterus Pupils: Absent: dilated - ENT ENT exam: Present: normal external ear exam - Neck Neck exam: Present: normal inspection - Respiratory Respiratory exam: Present: clear to auscultation bilaterally. Absent: chest wall tenderness - Cardiovascular Cardiovascular exam: Present: regular rate and rhythm, systolic murmur - GI/Abdominal GI/Abdominal exam: Present: normal bowel sounds. Absent: distended - Extremities Exam Extremities exam: Present: normal inspection, normal capillary refill. Absent: edema - Back Exam Back exam: Present: normal inspection - Neurological Exam Neurological exam: Present: alert, oriented X3 - Psychiatric Psychiatric exam: Present: normal affect, normal mood - Skin Skin exam: Present: normal color, warm. Absent: cyanosis Result/EKG - Labs CBC & BMP: 04/02/17 02:58 04/02/17 02:58 Lab Results: I have reviewed the past 24 hour labs - EKG EKG results: interpreted by me Quality Measures - VTE Contraindication to Pharmacological VTE Prophylaxis: High Risk of Bleeding Specialty Discharge - Follow Up or Referrals
--- NOTE | 2017-04-03 14:10 | Discharge Summary ---
Hospital Course - Hospital Course Hospital Course: This is a very pleasant 66-year-old male who presented to the ED at [facility] on the morning of April 01, 2017 via EMS for further evaluation of syncope. The patient reported no significant medical surgical history at the time of ED encounter. The patient is employed with a local [employer]. 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 The patient has no recollection of the events that transpired after the feelings of dizziness. The patient was subsequently transported to [facility] for further evaluation. The patient was assessed at the time of ED presentation he denied abdominal pain , palpitation, fever, nausea, vomiting, headache, or visual changes. In addition, the patient denied chest pain shortness of breath also. At the time of ED presentation, the patient returned to his baseline. The patient was noted to be verbally responsive; his speech was clear, and no profound neurologic deficits were noted. The patient was noted to be mildly hypertensive with a blood pressure noted at 160/84. Labs were obtained which were remarkable for potassium 3.4, troponin was noted at 0.018 and creatinine at 1.40. Chest x-ray was essentially unremarkable for any acute intracardiac processes. CT head was unremarkable for any acute intracranial lesion or hemorrhage. EKG was significant for the new onset of left bundle branch block. The patient was subsequently admitted to the hospitalist group for continuation of care. A syncope workup was initiated at the time of admission. Echocardiogram reported normal left ventricular cavity size, moderate global hypokinesis with abnormal septal motion, estimated left ventricular ejection fraction noted at 30 %, grade 3 diastolic dysfunction, with mild biatrial enlargement, mild eccentric mitral regurgitation, mild aortic valve insufficiency, and mild pulmonic valve insufficiency. Serial troponins were noted at 0.141 and 0.010. A cardiology consultation was requested. The patient was seen and evaluated by cardiology and recommendations were given. A cardiac workup to assess structural heart disease was suggested. On April 02, 2017, the patient underwent myocardial nuclear medicine perfusion scan which was significant for severe dilated cardiomyopathy, evidence of old myocardial disease with superimposed ischemia. In addition, the patient experienced nonsustained ventricular tachycardia with stress. At that time, the patient was deemed high risk for arrhythmia induced syncope and suggested an appropriate candidate for DIRECTOR OF GRADUATE ADMISSIONS-D. On April 02, 2017, the patient underwent elective left heart cath with selective right and left coronary artery angiograms without left ventriculogram from the right radial approach under the direction of Dr. Roge Hayes; which reported widely patent coronary arteries without stenosis. Due to the increased risk of sudden cardiac , the patient was suggested LifeVest placement until further cardiac workup is completed. The patient's condition has greatly improved. He has not experienced any significant overnight events. He has been properly fitted with his LifeVest and education has been provided. Today, we feel that he is indeed appropriate for discharge to follow-up with [facility], Dr. Leroy in 2 weeks for DIRECTOR OF GRADUATE ADMISSIONS-D. - Time spent with patient Time with patient DS: Greater than 30 minutes Diagnosis - Discharge Diagnosis (1) Cardiomyopathy Status: Acute (2) Hypertension Status: Acute (3) Chronic kidney disease Status: Acute Specialty Discharge - Follow Up or Referrals - Speciality Discharge Instructions Cardiology Instructions: Follow-up with Dr. Leroy in 2 weeks. The patient needs to call the office at on Wednesday to schedule an appointment. Hospitalist Instructions: Continue all medications as ordered. Follow-up with your primary care doctor in 5-7 days and with cardiology in 2 weeks. Discharge Plan - Discharge Data Condition at Discharge: Stable Discharge Diet: heart healthy, low fat, low cholesterol, low salt diet Activity: increase activity as tolerated, other (Wear LifeVest at all time) Hygiene: no restrictions Weight Bearing at Discharge: full weight bearing Driving: not until seen by doctor Contact your physician if you experience:: fever over 101, Difficulty voiding, Nausea/Vomiting, Shortness of breath - Discharge Medications No Action No Known Home Medications [No Known Home Medications] - Follow Up or Referral - Forms/Instructions Instructions: Coronary Artery Disease (GEN), Left Heart Catheterization (DC), Hypertrophic Cardiomyopathy (GEN), Heart Healthy Diet (GEN) Exam - Constitutional Vitals: Period Temp Pulse Resp BP Sys/Larios Pulse Ox Last 24 Hr 97 F-98.8 F 67-94 18-20 113-156/58-85 92-99 General appearance: normal weight, no acute distress - Head Head exam: Present: normal inspection, normocephalic - Eye Eye exam: Present: EOMI. Absent: conjunctival injection Pupils: Present: JENNY, normal accommodation - ENT ENT exam: Present: normal exam, normal external ear exam, normal oropharynx - Neck Neck exam: Present: normal inspection. Absent: lymphadenopathy, meningismus, tenderness, thyromegaly - Respiratory Respiratory exam: Present: clear to auscultation bilaterally. Absent: rales, rhonchi, stridor, wheezes - Cardiovascular Cardiovascular exam: Present: gallop, regular rate and rhythm. Absent: carotid bruit, diastolic murmur, JVD, rubs, systolic murmur - GI/Abdominal GI/Abdominal exam: Present: normal bowel sounds, soft - Extremities Exam Extremities exam: Present: normal inspection, normal capillary refill, full ROM. Absent: edema - Back Exam Back exam: Present: normal inspection - Neurological Exam Neurological exam: Present: alert, oriented X3, CN II-XII intact - Psychiatric Psychiatric exam: Present: normal affect, normal mood - Skin Skin exam: Present: normal color, warm, dry Discharge Results Procedures and tests throughout hospitalization: Pending Orders 04/02/17 12:46 CL heart Routine 04/04/17 04:00 CBC [Comp Blood Count Auto Diff] IN AM CMP [Comprehensive Metabolic Panel] IN AM Magnesium IN AM Phosphorous IN AM DS: Provider Date of admission: 04/01/17 09:39 Primary care physician: . No PCP Attending physician on admission: Triston Lawson Consults: 04/01/17 10:11 Consult to Physician [CONS] Routine Comment: syncope; new LBBB Consulting Provider: Patrice Leroy When should Consulting Provider be notified: Now Person Notified: Neal Date Notified: 04/01/17 Time Notified: 16:08 04/01/17 10:15 Consult to Case Mgmt/Social Srvs [CONS] Routine Reason for Case Mgmt/Social Srvs: Discharge Planning 04/02/17 13:25 Consult to Cardiac Rehabilitation [CONS] Routine Reason for Cardiac Rehabilitation: Risk Factor Modification Discharging clinician: Palma Cyr CNP
[2017-04-03] MEDS ORDERED: hydrALAZINE 25 MG TABLET PO SCH (15:00)
[2017-04-04] MEDS ORDERED: ISOSORBIDE MONONITRATE 30 MG TABLET PO SCH (09:00)
[2017-04-04] MEDS ORDERED: SPIRONOLACTONE 25 MG TABLET PO SCH (09:00)
== END 2017-04-03 15:17 | disposition home or self-care (01) | DRG 287 ==
LOC: EDBD → EDUNIT# → N.ED 07:19 → N.EDINP 09:39 → N.TELEN 16:03
PROC: CLCCHCL (ICD-10-PCS; 2017-04-02 13:15)

== ENCOUNTER 2017-05-11 05:56 | Inpatient (IN) ==
[2017-05-11] MEDS ORDERED: ceFAZolin 1,000 MG VIAL IRRIG ONE (06:00)
[2017-05-11] MEDS ORDERED: ceFAZolin 1,000 MG VIAL ONE ×3 (06:51→09:26)
[2017-05-11 07:02] LABS: Basophils # 0.1 10*3/uL (0.0-0.2); Basophils % 0.9 % (0.0-0.8); Eosinophils # 0.2 10*3/uL (0.0-0.87); Hematocrit 45.2 VOL% (42.0-52.0); Hemoglobin 15.4 GM/DL (14.0-18.0); Immature Granulocytes % 0.1 %; Immature Granulocytes Absolute 0.01 #; Lymphocytes # 2.9 10*3/uL (1.4-4.0); Mean Corpuscular HGB Conc 34.1 GM/DL (32-36); Mean Corpuscular Hemoglobin 28 PG (27-34); Mean Corpuscular Volume 80.9 FL (87-102); Mean Platelet Volume 11.6 FL (9.6-12.0); Monocytes # 0.5 10*3/uL (0.11-0.8); Monocytes % 6.1 % (1.7-12.7); Neutrophils # 4.8 10*3/uL (1.4-7.4); Neutrophils % 56.9 % (38.7-73.9); Platelet Count 161 T/CUMM (130-400); Red Blood Count 5.59 MC/CUMM (3.8-5.5); Red Cell Distribution Width 13.8 % (9.3-17.3); White Blood Count 8.5 T/CUMM (4-12)
[2017-05-11 07:30] LABS: Calcium 9.7 MG/DL (8.5-10.1); Magnesium 2.9 MG/DL (1.8-2.4); Osmolality,Calculated 278.7 MOS/KG (273-304); Potassium 4.1 MMOL/L (3.5-5.1)
[2017-05-11] MEDS ORDERED: HEPARIN/NACL 0.9% 2 UNITS/ML 500 ML IV ONE ×2 (07:44→09:16)
[2017-05-11] MEDS ORDERED: LIDOCAINE 1% 20 ML VIAL ONE ×2 (07:44→09:16)
--- NOTE | 2017-05-11 07:59 | History and Physical Update ---
Sedation H&P Update - History and Physical H&P was reviewed, the patient examined and there: are no changes in the patients condition since last H&P was completed. - Dictation Physical: refer to H&P completed by admitting physician - Physical Exam Mental Status: alert and oriented Heart: regular rate and rhythm Lung: clear to auscultation Abdomen: within normal limits Vitals: within normal limits - Sedation Plan for Sedation: MAC Patient Consent: Procedure disscussed with patient and patinet has consented., Risks and benefits were discussed with patient,including infection,, bleeding, injury to surrounding structures, seizure, temporary nerve, Patient understands and accepts potential risks/benefits and agrees to ASA Class: IV Airway Assessment: Class III: Soft palate, base of uvula visible
--- NOTE | 2017-05-11 08:15 | EKG Report ---
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
[2017-05-11] MEDS ORDERED: TISSUE ADHESIVE 1 EACH APPLICATOR TOP ONE (11:02)
--- NOTE | 2017-05-11 11:19 | Cardiac Defibrillator ---
- Preoperative diagnosis Date of Procedure:: 05/11/17 Preop Diagnosis: sustained ventricular tacharrhythmia, either spontaneous or induced by electrophysiology study, not associated with an acute OR &not due to transient reversible cause Pre-op Diagnosis: +LBBB, CHF NYHA III, NICM Post-op diagnosis: same Procedure: PROCEDURE SUMMARY Diagnostic EP study. 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 Biventricular ICD implant from left axillary vein access. Defibrillator testing. PLAN Bed rest for 4 hours. Routine post ICD implant site care and activity restrictions. Do not remove pressure dressing until AM. Portable CXR, EKG stat. CXR PA/Lat, device interrogation in AM. Ancef 1g iv. q8h x2. PROCEDURE Informed consent was obtained and a timeout was performed prior to the procedure. The patient was continuously monitored by ECG, pulse oxymetry and NIBP. 1g iv. Ancef was administered prior to the procedure for antibiotic prophylaxis. Monitored anesthesia care was provided by the anesthesia team. Diagnostic EP study Access The Seldinger technique was performed utilizing a 21 gauge micropuncture needle and 0.[address] the following sheaths. RFV: 8 Fr - CS catheter - CS/LA pacing and recording RFV: 6 Fr - Diagnostic quad catheter - RA, His, RV recording and pacing Electrophysiologic Study Baseline ECG: sinus rhythm, RR 611 ms, WV 159 ms, QRS 168 ms, left bundle branch block, QT 395 ms. No preexcitation. The catheters were introduced under fluoroscopic guidance. AH 111 ms, HV 61 ms. VA Wenckebach 400 ms. Retrograde conduction decremental, concentric. Retrograde AV lillian ERP 600/350 ms. Anterograde Wenckebach 400 ms. Antegrade conduction decremental, concentric. At 600/390 HRA programmed extra stimulation, and AH jump from 179 to 292 ms was noted. At 600/370 HRA programmed extra stimulation, a single typical A-V lillian echo beat was noted. Anterograde AV lillian ERP 600/360 ms. VERP 600/260, 400/230, 330/<200 ms. No inducible sustained ventricular arrhythmia from the RV apex, at 600, 400 and 330 ms programmed extra stimulation, up to 3 PES. From the RVOT, at 600/240/200/200 programmed extra estimation, sustained polymorphic ventricular tachycardia was induced, which degenerated into VF. Defibrillation was performed with 200 J energy, sinus rhythm resumed. The heart borders remained unchanged on fluoroscopy. The catheters were removed and the sheaths were pulled. Manual compression was applied until hemostasis was achieved. There were no complications. PRISON TEACHER-D implant and defibrillator testing The left pectoral area was meticulously prepared with ChloroPrep surgical scrub. Sterile draping was applied and Ioban was used to cover the operation site. The image intensifier was draped with a sterile bag and positioned over the patient's chest. After infiltration with 1% lidocaine, an incision was made in the left infraclavicular area, parallel to the deltopectoral groove. The incision was carried down to the level of the pectoral fascia. A subcutaneous pocket was then created with electrocautery and blunt dissection. Hemostasis was then achieved with electrocautery. A micropuncture needle was used to access the left axillary vein under fluoroscopic guidance. The microfilament was used to introduce the micropuncture sheath, which then was used to introduce and advance a long hydrophylic guidewire into the inferior vena cava. The micropuncture kit was used again to obtain a separate access to the left axillary vein under fluoroscopic guidance. A second long hydrophylic guidewire was then introduced and advanced into the inferior vena cava. A 10.5 Fr sheath was introduced over the first guidewire. The dilator was removed. The right ventricular defibrillator lead was introduced through the sheath. The sheath was then peeled away. The curved stylet was used to move the lead into the right ventricular outflow tract. The stylet was then replaced with a straight stylet and the lead was moved into a stable position on the right ventricular septum. Adequate sensing and pacing threshold was confirmed. The active fixation mechanism was then deployed. Stable signal and pacing threshold was noted, with decrease in pacing impedance. No extracardiac stimulation was noted with high output pacing. The lead was then anchored to the subcutaneous tissue with 2-0 nonabsorbable suture, using the anchoring sleeve near the point of entry to the vein. Another 9 Fr sheath was introduced over the first guidewire. The dilator was removed. The right atrial pacemaker lead was introduced through the sheath. The sheath was then peeled away. A straight stylet was used to move the lead into the right atrium. The stylet was then replaced with a curved J stylet and the lead was moved into a stable position in the right atrial appendage. Adequate sensing and pacing threshold was confirmed. The active fixation mechanism was then deployed. Stable signal and pacing threshold was noted, with decrease in pacing impedance. No extracardiac stimulation was noted with high output pacing. The lead was then anchored to the subcutaneous tissue with 2-0 nonabsorbable suture, using the anchoring sleeve near the point of entry to the vein. The Attain sheath was introduced over the second guidewire. The dilator was removed. The coronary sinus ostium was cannulated with the Attain sheath, and it was advanced into the proximal CS body over the guidewire. Non-occlusive CS venogram with 2 cc. contrast showed intraluminal position. The guidewire was then removed and the balloon angiographic catheter was introduced into the CS. The balloon was inflated and occlusive CS venogram was obtained with 10 cc. contrast. A moderate-sized posterior vein, 2 moderate-sized lateral veins, and a moderate- sized anterolateral vein was found. The posterior and the lower lateral vein originated with a sharp angulation. The balloon was then deflated and the angiographic catheter was removed. The coronary sinus lead was advanced over a BMW guidewire into the higher lateral vein. This vein was also very tortuous, the distal and mid electrodes were advanced into the basal lateral position, with the proximal electrode sitting at the coronary vein ostium. Adequate sensing and pacing threshold was confirmed. No extracardiac stimulation was noted with high output pacing. The Attain sheath was then withdrawn to the right atrium, then peeled away and removed, using the slitter tool. Lead position and parameters remained stable and it was then anchored to the subcutaneous tissue with 2-0 nonabsorbable suture, using the anchoring sleeve near the point of entry to the axillary vein. The retained guidewire was removed. The ICD generator was attached to the leads and sealed in the prescribed manner. The wound was flushed with Ancef . The generator was placed into the pocket and tied to the pectoral fascia using 2-0 nonabsorbable suture. Stable lead positions were confirmed with fluoroscopy. Ventricular fibrillation was induced with a T wave shock. The device promptly detected the arrhythmia and terminated it with a single 25J shock. The shock impedance was 71 Ohms. The wound was closed using a double layer of 2-0 absorbable Vicryl sutures , followed by a subcuticular running suture with 4-0 Monocryl, then Exofin. A sterile, then a pressure dressing was applied. The device was then interrogated and programmed as detailed below. The implanted system is MRI conditional. Device Type SN Location [employer] Claria PRISON TEACHER-D Biventricular ICD [id number] Left infraclavicular Lead Position Type SN P/R Threshold Impedance RA RA appendage 5076-52 [id number] 2.4 mV 1.9V @ 0.5 ms 1215 Ohm RV RV septum [id number] 10.4 mV 0.6V @ 0.5 ms 563 Ohm LV Basal lateral 4298-88 [id number] 15.6 mV 0.6V @ 0.5 ms 542 Ohm Bradycardia settings DDD Biv 60/130 Tachycardia settings VF@320, VT@360 ms PROCEDURE(S) 1. Comprehensive electrophysiologic evaluation including insertion and repositioning of multiple electrode catheters with induction or attempted induction of an arrhythmia with right atrial pacing and recording, right ventricular pacing and recording (when necessary), His bundle recording (when necessary) with intracardiac catheter ablation of arrhythmogenic focus 2. Biventricular ICD implant 3. Defibrillator testing Anesthesia: MAC Surgeon / Physician: Patrice Leroy Rotary Drum Dyer: other (Shantal Huang) Estimated blood loss: minimal Specimens: none sent Condition: stable Disposition: floor - Medications / Follow-up
--- NOTE | 2017-05-11 11:48 | Anesthesia Post-Op ---
Anesthesia Post OP - Post Ansesthetic Evaluation Patient seen in post op: Yes Resp: within normal limits CV: within normal limits Mental: within normal limits Temp: within normal limits Illl-Pj-Hejhiason: within normal limits Nausea and Vomiting: within normal limits Pain: within normal limits
--- NOTE | 2017-05-11 11:52 | XRay Report ---
History is pacemaker placement The heart is mildly enlarged. Pacemaker is present. No pneumothorax seen No congestive failure or confluent infiltrates seen Impression: Pacemaker placement without apparent complication PROCEDURE INTERPRETED AT [facility] DEPARTMENT OF RADIOLOGY Final Report Signed by: Dr. Karyn Lino
[2017-05-11] MEDS ORDERED: MIDAZOLAM 2 MG/2 ML VIAL ONE (12:26)
[2017-05-11] MEDS ORDERED: PROPOFOL 200 MG/20 ML VIAL IV ONE (12:26)
[2017-05-11] MEDS ORDERED: ONDANSETRON 4 MG/2 ML VIAL ONE (12:27)
[2017-05-11] MEDS ORDERED: KETAMINE 500 MG/10 ML VIAL ONE (12:27)
[2017-05-11] MEDS ORDERED: LACTATED RINGERS 1,000 ML IV ONE (12:27)
[2017-05-11] MEDS ORDERED: SODIUM CHLORIDE 0.9% 500 ML IV ONE (12:27)
[2017-05-11] MEDS ORDERED: PHENYLEPHRINE 50 MG/5 ML VIAL ONE (12:27)
[2017-05-11] MEDS ORDERED: fentaNYL 100 MCG/2 ML VIAL ONE (12:27)
[2017-05-11] MEDS: CARVEDILOL 3.125 MG TABLET PO SCH ×2 (12:44→21:39)
[2017-05-11] MEDS: hydrALAZINE 25 MG TABLET PO SCH ×3 (12:44→21:38)
[2017-05-11] MEDS: LISINOPRIL 10 MG TABLET PO SCH ×2 (12:44→21:38)
[2017-05-11] MEDS: ISOSORBIDE MONONITRATE 30 MG TABLET PO SCH (12:44)
--- NOTE | 2017-05-11 15:03 | EKG Report ---
Stationary ECG Study [facility] Test Date: 05/11/2017 2:54:42 PM Pat Name: KAEL NGO Department: Room: 284 Gender: M Time Study Statistician: : 1950 Requested by: Patrice Leroy Order Number: [id number] Reading MD: FARRAH SANTOS Intervals [place] Rate: 92 P: 81 [place]: 141 QRS: 112 QRSD: 140 T: -41 QT: 394 QTc: 444 Interpretive Statements ELECTRONIC VENTRICULAR PACEMAKER Electronically Signed On 05-14-17 21:05:48 CDT by FARRAH SANTOS [email or web address]
[2017-05-11] MEDS: SPIRONOLACTONE 25 MG TABLET PO SCH (15:32)
[2017-05-12 06:07] LABS: Basophils # 0.1 10*3/uL (0.0-0.2); Basophils % 0.5 % (0.0-0.8); Eosinophils # 0.2 10*3/uL (0.0-0.87); Eosinophils % 1.9 % (0.00-10.9); Hematocrit 43.7 VOL% (42.0-52.0); Hemoglobin 14.8 GM/DL (14.0-18.0); Immature Granulocytes % 0.2 %; Immature Granulocytes Absolute 0.02 #; Lymphocytes # 2.3 10*3/uL (1.4-4.0); Lymphocytes % 22.9 % (21.2-54.2); Mean Corpuscular HGB Conc 33.9 GM/DL (32-36); Mean Corpuscular Hemoglobin 27 PG (27-34); Mean Corpuscular Volume 79.9 FL (87-102); Mean Platelet Volume 12.3 FL (9.6-12.0); Monocytes # 0.8 10*3/uL (0.11-0.8); Monocytes % 8.1 % (1.7-12.7); Neutrophils # 6.6 10*3/uL (1.4-7.4); Neutrophils % 66.4 % (38.7-73.9); Platelet Count 132 T/CUMM (130-400); Red Blood Count 5.47 MC/CUMM (3.8-5.5); Red Cell Distribution Width 13.9 % (9.3-17.3); White Blood Count 9.9 T/CUMM (4-12)
[2017-05-12 06:30] LABS: Calcium 9.2 MG/DL (8.5-10.1); Magnesium 2.5 MG/DL (1.8-2.4); Osmolality,Calculated 278.5 MOS/KG (273-304); Potassium 4.3 MMOL/L (3.5-5.1)
[2017-05-12] MEDS: LISINOPRIL 10 MG TABLET PO SCH (08:41)
[2017-05-12] MEDS: SPIRONOLACTONE 25 MG TABLET PO SCH (08:41)
[2017-05-12] MEDS: hydrALAZINE 25 MG TABLET PO SCH ×3 (08:41→20:33)
[2017-05-12] MEDS: ISOSORBIDE MONONITRATE 30 MG TABLET PO SCH (08:41)
[2017-05-12] MEDS: CARVEDILOL 3.125 MG TABLET PO SCH (08:41)
--- NOTE | 2017-05-12 08:43 | EKG Report ---
Stationary ECG Study [facility] Test Date: 05/12/2017 7:56:33 AM Pat Name: KAEL NGO Department: Room: 284 Gender: M Deckhand: SHANE : 1950 Requested by: Patrice Leroy Order Number: [id number] Reading MD: PK GUSTAFSON Intervals [place] Rate: 92 P: 89 [place]: 125 QRS: 103 QRSD: 127 T: 97 QT: 401 QTc: 451 Interpretive Statements ELECTRONIC VENTRICULAR PACEMAKER at 92 bpm ABNORMAL RHYTHM ECG Electronically Signed On 05-15-17 12:16:54 CDT by PK GUSTAFSON [email or web address]
--- NOTE | 2017-05-12 10:04 | Discharge Summary ---
Hospital Course - Hospital Course Hospital Course: Mr. Naylor is a 66-year-old male, history of nonischemic cardiomyopathy, left bundle branch block, CHF class III, syncope. He was admitted for an EP study, which confirmed inducible polymorphic VT, VF. TWO WAY RADIO TECHNICIAN-D was implanted, under MAC, and successful defibrillator testing was performed. Postprocedure course was uneventful, chest x-ray, telemetry and device interrogation showed normal device parameters and lead positions. There was no hematoma. Labs remained unchanged, compared to his baseline. He will be discharged home today, follow-up with EP, Dr. Watson in 1 week. Post EPS, ICD implant activity limitations and implant site care were discussed. Diagnosis - Discharge Diagnosis (1) Syncope Status: Acute (2) New onset left bundle branch block (LBBB) Status: Acute (3) Cardiomyopathy Status: Acute (4) Hypertension Status: Acute (5) Chronic kidney disease Status: Acute Discharge Plan - Discharge Data Disposition: Disch To Home/Self Care Condition at Discharge: Stable Discharge Diet: advance to your usual diet Activity: resume usual activities as tolerated Hygiene: keep area(s) dry Weight Bearing at Discharge: full weight bearing Driving: not until seen by doctor Contact your physician if you experience:: fever over 101, Difficulty voiding, Redness or swelling, Nausea/Vomiting, Shortness of breath, Bleeding, pain uncontrolled by pain medications Wound / Dressing Care Instructions: Keep the implants are dry and the dressing in place for 1 week. Wear the sling all the time, until seen by Dr. Watson. May remove the groin dressing today. - Discharge Medications New oxyCODONE/ACETAMINOPHEN 5-325 [Percocet 5-325] 1 tablet PO Q4H PRN #20 tablet PRN Reason: Pain Moderate (4-7) Continue Carvedilol [Coreg] 3.125 mg PO BID Spironolactone 25 mg PO DAILY Isosorbide Mononitrate [Isosorbide Mononitrate ER] 30 mg PO DAILY hydrALAZINE TAB [Apresoline Tab] 25 mg PO TID Lisinopril 10 mg PO BID - Follow Up or Referral Follow Up: Adele Watson MD [Physician] - 1 Week - Forms/Instructions Exam - Constitutional Vitals: Period Temp Pulse Resp BP Sys/Larios Pulse Ox Last 24 Hr 96.5 F-98.7 F 84-100 16-20 121-134/70-88 92-99 General appearance: normal weight, no acute distress - Head Head exam: Present: normal inspection, normocephalic - Eye Eye exam: Absent: conjunctival injection, periorbital swelling, laceration to eyelids Pupils: Absent: dilated, irregular - ENT ENT exam: Present: normal external ear exam - Neck Neck exam: Present: normal inspection - Respiratory Respiratory exam: Present: clear to auscultation bilaterally - Cardiovascular Cardiovascular exam: Present: regular rate and rhythm, systolic murmur. Absent : JVD - GI/Abdominal GI/Abdominal exam: Present: normal bowel sounds. Absent: distended - Extremities Exam Extremities exam: Present: normal inspection, normal capillary refill. Absent: edema - Back Exam Back exam: Present: normal inspection - Neurological Exam Neurological exam: Present: alert, oriented X3 - Psychiatric Psychiatric exam: Present: normal affect, normal mood - Skin Skin exam: Present: normal color, warm, other (No groin or ICD hematoma.). Absent: cyanosis Discharge Results Procedures and tests throughout hospitalization: Pending Orders 05/11/17 04:00 CL heart IN AM 05/12/17 04:00 XR chest 2V IN AM Labs on day of discharge: Labs from last 24 hours 05/12/17 05/12/17 05:43 05:43 WBC 9.9 RBC 5.47 Hgb 14.8 Hct 43.7 MCV 79.9 L MCH 27 MCHC 33.9 RDW 13.9 Plt Count 132 MPV 12.3 H Neut % (Auto) 66.4 Lymph % (Auto) 22.9 [place] % (Auto) 8.1 Eos % (Auto) 1.9 Baso % (Auto) 0.5 Neut # (Auto) 6.6 Lymph # (Auto) 2.3 [place] # (Auto) 0.8 Eos # (Auto) 0.2 Baso # (Auto) 0.1 Immature Gran % 0.2 Nucleated RBC % 0.0 Immature Gran # 0.02 Nucleated RBCs # 0.00 Immature Plt Fraction 0.0 Sodium 139 Potassium 4.3 Chloride 103 Carbon Dioxide 29 Anion Gap 11.3 BUN 18 Creatinine 1.50 H GFR Calculation 61 BUN/Creatinine Ratio 12.00 Glucose 97 Calculated Osmolality 278.5 Calcium 9.2 Magnesium 2.5 H - Imaging and Cardiology Cardiology Procedure: image reviewed by me, report reviewed by me DS: Provider Date of admission: 05/11/2017 Primary care physician: . Kelly PCP Attending physician on admission: adele watson Discharging clinician: Adele Watson MD Expected date of discharge: 05/12/17
--- NOTE | 2017-05-12 12:47 | XRay Report ---
XR chest 2V Indication: Lead placement Comparison: 11 May 2017 at 11:20 AM Findings: The heart and mediastinum are normal in size and configuration. Pacemaker device is similar in position to previous. The pulmonary vascularity is normal in caliber. No lung infiltrates, effusions, pneumothorax or other abnormality is demonstrated. Impression: Pacemaker position appears within normal limits. PROCEDURE INTERPRETED AT [facility] DEPARTMENT OF RADIOLOGY Final Report Signed by: Dr. Fritz Chowdhury
[2017-05-12] MEDS ORDERED: CARVEDILOL 6.25 MG TABLET PO SCH (17:09)
[2017-05-12] MEDS ORDERED: DIGOXIN 0.25 MG TABLET PO ONE ×2 (17:11→23:59)
[2017-05-12] MEDS: ENOXAPARIN 40 MG/0.4 ML SYRINGE SUBCUT SCH (17:21)
--- NOTE | 2017-05-12 17:33 | Electrophysiology Progress Not ---
Assessment and Plan (1) Cardiomyopathy Status: Acute Assessment and plan: 66-year-old BM, recently diagnosed nonischemic cardiomyopathy, ejection fraction 70%, class III heart failure, syncope, left bundle branch block. EP study confirmed inducible polymorphic VT/VF. BIBLIOGRAPHIC SERVICES SPECIALIST-D was implanted. He was noted to have markedly tachycardia, loss of BIBLIOGRAPHIC SERVICES SPECIALIST with ambulation and discharge was held. -Continue p.o. hydration. Blood pressure at the goal, resting heart rate still mildly elevated. I suspect he was dehydrated. Low suspicion for infection, PE so far. -Increase Coreg to 6.25 mg twice daily. -Start digoxin p.o., 0.252 every 6 hours, then 0.25 mg daily. Had mild acute kidney injury, a repeat BMP in a.m. -Decrease lisinopril to 10 mg daily -DVT prophylaxis with Lovenox -Plan to discharge in a.m., if remains stable. Current Visit: No Qualifiers: Cardiomyopathy type: dilated Qualified Code(s): I42.0 - Dilated cardiomyopathy (2) New onset left bundle branch block (LBBB) Status: Acute Current Visit: No (3) Syncope Status: Acute Current Visit: No (4) Hypertension Status: Acute Current Visit: No Qualifiers: Hypertension type: essential hypertension Qualified Code(s): I10 - Essential (primary) hypertension (5) Chronic kidney disease Status: Acute Current Visit: No Electrophysiology Subjective Interval history: When he was getting ready to go home, asymptomatic tachycardia was noted. Telemetry reviewed showed sinus tachycardia, with loss of assembler finger buffs above UTI. He is feeling fine. Exam - Constitutional Vitals: Period Temp Pulse Resp BP Sys/Larios Pulse Ox Last 24 Hr 96.5 F-98.7 F 84-113 16-20 98-127/68-79 92-99 General appearance: normal weight, no acute distress - Head Head exam: Present: normal inspection. Absent: contusion, hematoma - Eye Eye exam: Absent: periorbital swelling, scleral icterus Pupils: Present: normal accommodation - ENT ENT exam: Absent: normal external ear exam - Neck Neck exam: Present: normal inspection - Respiratory Respiratory exam: Present: clear to auscultation bilaterally. Absent: chest wall tenderness - Cardiovascular Cardiovascular exam: Present: regular rate and rhythm. Absent: JVD, systolic murmur - GI/Abdominal GI/Abdominal exam: Present: normal bowel sounds. Absent: distended - Extremities Exam Extremities exam: Present: normal inspection, normal capillary refill. Absent: edema - Neurological Exam Neurological exam: Present: alert, oriented X3 - Psychiatric Psychiatric exam: Present: normal affect, normal mood - Skin Skin exam: Present: normal color, warm. Absent: cyanosis Results - Labs CBC & BMP: 05/12/17 05:43 05/12/17 05:43 Lab Results: I have reviewed the past 24 hour labs Quality Measures - VTE Contraindication to Pharmacological VTE Prophylaxis: High Risk of Bleeding Specialty Discharge - Follow Up or Referrals Follow up with: Patrice Leroy MD [Physician] - 05/18/17 3:30 pm
[2017-05-12] MEDS: oxyCODONE/ACETAMINOPHEN 5-325 MG TABLET PO PRN (20:32)
[2017-05-13 05:57] LABS: Basophils # 0.1 10*3/uL (0.0-0.2); Basophils % 0.6 % (0.0-0.8); Eosinophils # 0.1 10*3/uL (0.0-0.87); Eosinophils % 0.7 % (0.00-10.9); Hematocrit 44.7 VOL% (42.0-52.0); Hemoglobin 15.2 GM/DL (14.0-18.0); Immature Granulocytes % 0.3 %; Immature Granulocytes Absolute 0.04 #; Lymphocytes # 2.3 10*3/uL (1.4-4.0); Lymphocytes % 18.5 % (21.2-54.2); Mean Corpuscular Hemoglobin 27 PG (27-34); Mean Corpuscular Volume 79.8 FL (87-102); Mean Platelet Volume 12.5 FL (9.6-12.0); Monocytes # 1.1 10*3/uL (0.11-0.8); Neutrophils # 8.7 10*3/uL (1.4-7.4); Neutrophils % 70.9 % (38.7-73.9); Platelet Count 116 T/CUMM (130-400); Red Cell Distribution Width 13.7 % (9.3-17.3); White Blood Count 12.2 T/CUMM (4-12)
[2017-05-13 06:26] LABS: Calcium 9.1 MG/DL (8.5-10.1); Magnesium 2.6 MG/DL (1.8-2.4); Osmolality,Calculated 274.8 MOS/KG (273-304); Potassium 4.3 MMOL/L (3.5-5.1)
[2017-05-13] MEDS ORDERED: CARVEDILOL 12.5 MG TABLET PO SCH (07:16)
--- NOTE | 2017-05-13 09:09 | XRay Report ---
XR chest 2V Indication: Pneumonia Comparison: 12 May 2017 Findings: The heart and mediastinum are stable in size and configuration. In Pacemaker device is unchanged in position. The pulmonary vascularity is normal in caliber. No lung infiltrates, effusions, pneumothorax or other abnormality is demonstrated. Impression: No acute cardiopulmonary disease. PROCEDURE INTERPRETED AT [facility] DEPARTMENT OF RADIOLOGY Final Report Signed by: Dr. Fritz Chowdhury
[2017-05-13] MEDS: ISOSORBIDE MONONITRATE 30 MG TABLET PO SCH (09:13)
[2017-05-13] MEDS: LISINOPRIL 10 MG TABLET PO SCH (09:13)
[2017-05-13] MEDS: cephALEXin 500 MG CAPSULE PO SCH ×2 (09:13→20:54)
[2017-05-13] MEDS: SPIRONOLACTONE 25 MG TABLET PO SCH (09:14)
--- NOTE | 2017-05-13 11:38 | Electrophysiology Progress Not ---
Assessment and Plan (1) Cardiomyopathy Status: Acute Assessment and plan: 66-year-old BM, recently diagnosed nonischemic cardiomyopathy, ejection fraction 70%, class III heart failure, syncope, left bundle branch block. EP study confirmed inducible polymorphic VT/VF. ARCHITECTURE TECHNICIAN-D was implanted. He was noted to have markedly tachycardia, loss of ARCHITECTURE TECHNICIAN with ambulation and discharge was held. -His heart rate is still elevated, no signs of ICD hematoma or infection. Chest x-ray unchanged -Check UA. -Echo, rule out pericardial effusion. -Continue digoxin, continue Coreg, lisinopril was decreased -DVT prophylaxis with Lovenox -Plan to discharge later today, if remains stable Current Visit: No Qualifiers: Cardiomyopathy type: dilated Qualified Code(s): I42.0 - Dilated cardiomyopathy (2) New onset left bundle branch block (LBBB) Status: Acute Current Visit: No (3) Syncope Status: Acute Current Visit: No (4) Hypertension Status: Acute Current Visit: No Qualifiers: Hypertension type: essential hypertension Qualified Code(s): I10 - Essential (primary) hypertension (5) Chronic kidney disease Status: Acute Current Visit: No Electrophysiology Subjective Interval history: His heart rate is still elevated. Becomes quite tachycardic with postural changes. Despite medications were adjusted yesterday. No fever, diabetes to be mildly elevated. Chest x-ray shows normal lead positions, unchanged cardiac contours, no infiltrate. Exam - Constitutional Vitals: Period Temp Pulse Resp BP Sys/Larios Pulse Ox Last 24 Hr 97.0 F-99 F 106-117 14-20 98-125/68-88 93-98 General appearance: normal weight, no acute distress - Head Head exam: Present: normal inspection. Absent: contusion - Eye Eye exam: Absent: conjunctival injection, periorbital swelling, laceration to eyelids Pupils: Absent: dilated - ENT ENT exam: Present: normal external ear exam - Neck Neck exam: Present: normal inspection - Respiratory Respiratory exam: Present: clear to auscultation bilaterally. Absent: chest wall tenderness - Cardiovascular Cardiovascular exam: Present: systolic murmur, tachycardia. Absent: JVD - GI/Abdominal GI/Abdominal exam: Present: normal bowel sounds. Absent: distended - Extremities Exam Extremities exam: Present: normal inspection, normal capillary refill. Absent: edema - Back Exam Back exam: Present: normal inspection - Neurological Exam Neurological exam: Present: alert, oriented X3 - Psychiatric Psychiatric exam: Present: normal affect, normal mood - Skin Skin exam: Present: normal color, warm. Absent: cyanosis Results - Labs CBC & BMP: 05/13/17 05:34 05/13/17 05:34 Lab Results: I have reviewed the past 24 hour labs Quality Measures - VTE Contraindication to Pharmacological VTE Prophylaxis: High Risk of Bleeding Specialty Discharge - Follow Up or Referrals Follow up with: Patrice Leroy MD [Physician] - 05/18/17 3:30 pm
[2017-05-13 13:40] LABS: Apearance,Urine CLEAR (Clear); Bilirubin,Urine Negative (Negative); Blood, Urine Moderate mg/dL (Negative); Glucose,Urine (UA) Negative (Negative); Ketones,Urine Negative (Negative); Mucus,Urine Occasional /LPF (Occasional); Nitrite,Urine Negative (Negative); Protein,Urine Negative; RBC,Urine 3 /HPF (0-4); Squamous Epithelial Cell,Urine Occasional /HPF (0-10); Urine Color Yellow (Yellow); Urine Urobilinogen < 2.0 EU/DL (0.2-1.0)
[2017-05-13] MEDS: DIGOXIN 0.25 MG TABLET PO SCH (14:13)
--- NOTE | 2017-05-13 14:36 | ECHO Report ---
Jeff Naylor Exam Date: 05/13/2017 13:12 Referring Physician: Technologist: Zhanna Dee LRALISSA Age: 66 Ht (in): 68 Wt (lb): 167 Gender: M Exam Location: [facility] Echo Indications: tachy post SCRAP HOOKER implant, r/o effusion, chronic kidney disease, HTN, syncope, cardiomyopathy, new onset of LBBB BP: 117 / 82 HR: 120 Rhythm: tachycardia Technical Quality: Technically difficult study IMPRESSIONS Technically difficult study Normal chamber sizes with somewhat underfilled left ventricle Borderline LV systolic function with ejection fraction estimated to be 45-55% with delayed septal motion consistent with bundle branch block. Probable 1+ mitral and tricuspid regurgitation with RVSP 22 mmHg plus RAP Tachycardia noted MEASUREMENTS (Male / Female) Normal Values 2D ECHO LV Diastolic Diameter PLAX 3.9 cm 4.2 - 5.9 / 3.9 - 5.3 cm LV Systolic Diameter PLAX 2.8 cm LV Fractional Shortening PLAX 26.6 % IVS Diastolic Thickness 1.2 cm 0.6 - 1.0 / 0.6 - 0.9 cm LVPW Diastolic Thickness 1.2 cm 0.6 - 1.0 / 0.6 - 0.9 cm RV Internal Dim ED PLAX 1.8 cm Aortic Root Diameter 2.1 cm LA Systolic Diameter LX 2.5 cm 3.0 - 4.0 / 2.7 - 3.8 cm DOPPLER TR Peak Velocity 232.0 cm/s TR Peak Gradient 21.5 mmHg FINDINGS Left Ventricle Normal left ventricular cavity size. Mild - moderate concentric left ventricular hypertrophy with diastolic dysfunction. Left ventricular ejection fraction is estimated . Right Ventricle Normal right ventricular size. Right Atrium Normal right atrial size. Left Atrium Normal left atrial size. Mitral Valve Morphologically normal mitral valve. Aortic Valve The aortic valve is trileaflet and has normal motion. Trace aortic valve regurgitation. Tricuspid Valve Morphologically normal tricuspid valve. Trace tricuspid valve regurgitation. Tricuspid regurgitation velocities suggest a PAP of 21.5 mmHg + RAP. Pulmonic Valve Pulmonic valve not well visualized. Pericardium Small pericardial effusion. Aorta Normal size aortic root and proximal ascending aorta. Arpit Guzman (Electronically Signed) Final Date: 13 May 2017 14:34
[2017-05-13] MEDS ORDERED: SODIUM CHLORIDE 0.45% 500 ML IV ONE (14:54)
[2017-05-13] MEDS: ENOXAPARIN 40 MG/0.4 ML SYRINGE SUBCUT SCH (17:18)
[2017-05-13] MEDS: SODIUM CHLORIDE 0.45% 1,000 ML IV SCH (17:18)
[2017-05-13] MEDS: CARVEDILOL 25 MG TABLET PO SCH (20:54)
[2017-05-14 04:59] LABS: Basophils # 0.1 10*3/uL (0.0-0.2); Basophils % 0.5 % (0.0-0.8); Eosinophils # 0.1 10*3/uL (0.0-0.87); Eosinophils % 0.4 % (0.00-10.9); Hematocrit 41.5 VOL% (42.0-52.0); Hemoglobin 14.5 GM/DL (14.0-18.0); Immature Granulocytes % 0.3 %; Immature Granulocytes Absolute 0.04 #; Lymphocytes # 2.4 10*3/uL (1.4-4.0); Lymphocytes % 18.6 % (21.2-54.2); Mean Corpuscular HGB Conc 34.9 GM/DL (32-36); Mean Corpuscular Hemoglobin 28 PG (27-34); Mean Corpuscular Volume 79.8 FL (87-102); Mean Platelet Volume 13.2 FL (9.6-12.0); Monocytes # 1.1 10*3/uL (0.11-0.8); Monocytes % 8.8 % (1.7-12.7); Neutrophils # 9.2 10*3/uL (1.4-7.4); Neutrophils % 71.4 % (38.7-73.9); Platelet Count 103 T/CUMM (130-400); Red Cell Distribution Width 13.5 % (9.3-17.3); White Blood Count 12.9 T/CUMM (4-12)
[2017-05-14 05:31] LABS: Calcium 8.8 MG/DL (8.5-10.1); Magnesium 2.3 MG/DL (1.8-2.4); Osmolality,Calculated 269.2 MOS/KG (273-304); Potassium 4.4 MMOL/L (3.5-5.1)
[2017-05-14 05:33] LABS: Bilirubin,Direct 0.31 MG/DL (0.0-0.20); Bilirubin,Indirect 1.9 MG/DL (0.0-1.0); Bilirubin,Total 2.2 MG/DL (0.2-1.0); Free T4 (Free Thyroxine) 1.04 NG/DL (0.76-1.46); Thyroid Stimulating Hormone 0.167 uIU/ml (0.358-3.74); Total Protein 6.4 G/DL (6.4-8.3)
[2017-05-14] MEDS: SODIUM CHLORIDE 0.45% 1,000 ML IV SCH (06:11)
--- NOTE | 2017-05-14 07:50 | EKG Report ---
Stationary ECG Study [facility] Test Date: 05/14/2017 7:51:28 AM Pat Name: KAEL NGO Department: Room: 284 Gender: M Resourcing Consultant: SHANE : 1950 Requested by: Patrice Leroy Order Number: [id number] Reading MD: FARRAH SANTOS Intervals Rough And Ready Rate: 94 P: 56 ID: [id number] QRS: 119 QRSD: 124 T: 81 QT: 387 QTc: 439 Interpretive Statements NORMAL SINUS RHYTHM WITH ELECTRONIC VENTRICULAR PACEMAKER Electronically Signed On 05-15-17 18:18:58 CDT by FARRAH SANTOS [email or web address]
[2017-05-14] MEDS: cephALEXin 500 MG CAPSULE PO SCH (09:26)
[2017-05-14] MEDS: ISOSORBIDE MONONITRATE 30 MG TABLET PO SCH (09:27)
[2017-05-14] MEDS: LISINOPRIL 10 MG TABLET PO SCH (09:27)
[2017-05-14] MEDS: SPIRONOLACTONE 25 MG TABLET PO SCH (09:27)
[2017-05-14] MEDS: CARVEDILOL 25 MG TABLET PO SCH ×2 (09:27→21:01)
--- NOTE | 2017-05-14 11:08 | CT Report ---
CT chest abdomen wo con Indication: Hemorrhage, pacemaker placement Comparison: None available Technique: Axial CT imaging of the chest and abdomen is performed without contrast. Findings: CT chest: Pacemaker is been placed in the left anterior chest. There is artifact partially limiting areas of the study. There is adjacent hematoma and small pockets of air both superior medial and inferior to the pacemaker. Leads appear within normal limits. Heart and great vessels show no evidence of abnormality. Calcified left hilar lymph nodes are present. Linear densities are present in both lung bases. No other evidence of lung parenchymal abnormality is seen. No pneumothorax or effusion is present. No chest wall abnormalities are identified. CT abdomen: The liver, spleen, pancreas, adrenal glands and kidneys are normal in size and enhancement. No evidence of focal lesion is demonstrated in the solid organs. The bowel caliber is normal and no wall thickening or adjacent inflammatory change is seen. No evidence of free fluid or free air is present. Impression: Hemorrhage and air present surrounding the pacemaker. No other acute findings. PROCEDURE INTERPRETED AT [facility] Final Report Signed by: Dr. Fritz Chowdhury
[2017-05-14] MEDS: DIGOXIN 0.25 MG TABLET PO SCH (12:11)
--- NOTE | 2017-05-14 13:14 | Electrophysiology Progress Not ---
I, Jenny Morris RN, am scribing for, and in the presence of, Patrice Leroy MD 13 :14. Assessment and Plan - Time spent with patient Time spent with patient: Greater than 30 minutes (1) Cardiomyopathy Status: Chronic Assessment and plan: 66-year-old BM, recently diagnosed nonischemic cardiomyopathy, ejection fraction 30%, NYHA class III heart failure, syncope, left bundle branch block. EP study confirmed inducible polymorphic VT/VF. PHARMACEUTICAL PROCESS ENGINEER-D was implanted. He was noted to have marked tachycardia, loss of PHARMACEUTICAL PROCESS ENGINEER with ambulation and discharge was held. 05/13 Echo: no pericardial effusion. LVEF 45-55, delayed septal motion consistent with RBBB. EKG: ventricular pacing A/P: -ST. Only minimally improved with meds. Continue digoxin, carvedilol, lisinopril. Likely due to an underlying systemic process. LV was small, underfilled on echo. No pericardial effusion, PHTN, RP bleed. -Appropriate PHARMACEUTICAL PROCESS ENGINEER-D function. -CT A/P did not show bleed. There is a small device hematoma or fluid, with surrounding air. This started 2 days after device implant, not typical for device hematoma. There is no pain, erythema. The patient does not appear to be septic, lactic acid normal, WBC is elevated, no fever. He was treated with Keflex so far. -Stat blood culture, switch antibiotics to vancomycin and Zosyn. ID consult. I am concerned about a gas-forming infection around the ICD pocket. -Elevated LFTs, bilirubins. Crit stable, doubt hemolysis. He was hemodynamically stable, I do not suspect this is due to liver congestion. GI consult. -Cont LMWH for DVT prophylaxis, high risk for DVT. Monitor ICD pocket fot expanding hematoma Qualifiers: Cardiomyopathy type: dilated Qualified Code(s): I42.0 - Dilated cardiomyopathy (2) Chronic kidney disease Status: Chronic Assessment and plan: SEE PLAN OF CARE LISTED ABOVE. (3) Hypertension Status: Chronic Assessment and plan: SEE PLAN OF CARE LISTED ABOVE. Qualifiers: Hypertension type: essential hypertension Qualified Code(s): I10 - Essential (primary) hypertension (4) New onset left bundle branch block (LBBB) Status: Chronic Assessment and plan: SEE PLAN OF CARE LISTED ABOVE. (5) Syncope Status: Resolved Assessment and plan: SEE PLAN OF CARE LISTED ABOVE. Electrophysiology Subjective Interval history: Mr. Naylor awake and alert with family present. Still with some mild tachycardia in 90s. SBP 105-120 mmHg range. Ventricular pacing per telemetry. Remains afebrile. Device implant site appears to be healing well, but there is a hematoma at site today. Labs reviewed. Bilirubin levels elevated today with total bili 2.2. HCT remains stable with no significant decline. Glucose stable. UA with mod amount of blood but no leukocytosis. He has not had any flank or lower back pain. Exam - Constitutional Vitals: Period Temp Pulse Resp BP Sys/Larios Pulse Ox Last 24 Hr 96.8 F-98.9 F 95-120 16-20 103-117/62-82 90-97 Exam: General appearance: normal weight, no acute distress - Head Head exam: Present: normal inspection. Absent: contusion - Eye Eye exam: Absent: conjunctival injection, periorbital swelling, laceration to eyelids Pupils: Absent: dilated - ENT ENT exam: Present: normal external ear exam - Neck Neck exam: Present: normal inspection - Respiratory Respiratory exam: Present: clear to auscultation bilaterally. Absent: chest wall tenderness, rhonchi, rales - Cardiovascular Cardiovascular exam: Present: systolic murmur, tachycardia-mild improvement today. Absent: JVD - GI/Abdominal GI/Abdominal exam: Present: normal bowel sounds, soft. Absent: distended, firm - Extremities Exam Extremities exam: Present: normal inspection, normal capillary refill. Absent: edema - Back Exam Back exam: Present: normal inspection - Neurological Exam Neurological exam: Present: alert, oriented X3 - Psychiatric Psychiatric exam: Present: normal affect, normal mood - Skin Skin exam: Present: normal color, warm. Absent: cyanosis Chest: Left chest device implant site with hematoma. Appears to be healing well. Results - Labs CBC & BMP: 05/14/17 03:06 05/14/17 03:06 Lab Results: I have reviewed the past 24 hour labs - Diagnostic Findings Procedure: CT - chest: image reviewed by me, report reviewed by me, CT: image reviewed by me, report reviewed by me Quality Measures - VTE Contraindication to Pharmacological VTE Prophylaxis: High Risk of Bleeding Specialty Discharge - Follow Up or Referrals Follow up with: Patrice Leroy MD [Physician] - 05/18/17 3:30 pm Rad Barillas Attila, MD, personally performed the services described in this documentation, ascribed by Jenny Morris RN in my presence, and it is both accurate and complete .
[2017-05-14] MEDS: oxyCODONE/ACETAMINOPHEN 5-325 MG TABLET PO PRN (14:39)
[2017-05-14] MEDS: VANCOMYCIN INJ 1,000 MG in SODIUM CHLORIDE 0.9% 250 ML IV SCH (14:40)
[2017-05-14] MEDS: PIPERACILLIN/TAZOBACTAM 3,375 MG in SODIUM CHLORIDE 0.9% 50 ML IV SCH ×2 (15:54→21:02)
[2017-05-15] MEDS: VANCOMYCIN INJ 1,000 MG in SODIUM CHLORIDE 0.9% 250 ML IV SCH (02:15)
[2017-05-15 04:59] LABS: Basophils # 0.1 10*3/uL (0.0-0.2); Basophils % 0.7 % (0.0-0.8); Eosinophils # 0.2 10*3/uL (0.0-0.87); Eosinophils % 1.6 % (0.00-10.9); Hematocrit 39.1 VOL% (42.0-52.0); Hemoglobin 13.2 GM/DL (14.0-18.0); Immature Granulocytes % 0.4 %; Immature Granulocytes Absolute 0.04 #; Lymphocytes # 1.6 10*3/uL (1.4-4.0); Lymphocytes % 16.5 % (21.2-54.2); Mean Corpuscular HGB Conc 33.8 GM/DL (32-36); Mean Corpuscular Hemoglobin 27 PG (27-34); Mean Corpuscular Volume 80.5 FL (87-102); Mean Platelet Volume 12.5 FL (9.6-12.0); Monocytes # 0.8 10*3/uL (0.11-0.8); Monocytes % 8.5 % (1.7-12.7); Neutrophils # 7.1 10*3/uL (1.4-7.4); Neutrophils % 72.3 % (38.7-73.9); Red Blood Count 4.86 MC/CUMM (3.8-5.5); Red Cell Distribution Width 13.5 % (9.3-17.3); White Blood Count 9.8 T/CUMM (4-12)
[2017-05-15 05:11] LABS: Platelet Count 97 T/CUMM (130-400)
[2017-05-15] MEDS: PIPERACILLIN/TAZOBACTAM 3,375 MG in SODIUM CHLORIDE 0.9% 50 ML IV SCH (05:19)
[2017-05-15 05:28] LABS: Calcium 8.5 MG/DL (8.5-10.1); Magnesium 2.6 MG/DL (1.8-2.4); Osmolality,Calculated 276.7 MOS/KG (273-304); Potassium 4.5 MMOL/L (3.5-5.1)
[2017-05-15 06:41] LABS: Giant Platelets Few; Hypochromasia Slight; Ovalocytes Slight; Platelet Estimate Decreased
[2017-05-15] MEDS: LISINOPRIL 10 MG TABLET PO SCH (08:44)
[2017-05-15] MEDS: ISOSORBIDE MONONITRATE 30 MG TABLET PO SCH (08:44)
[2017-05-15] MEDS: CARVEDILOL 25 MG TABLET PO SCH (08:44)
[2017-05-15] MEDS: SPIRONOLACTONE 25 MG TABLET PO SCH (08:45)
--- NOTE | 2017-05-15 09:39 | Event Note ---
He feels comfortable. ST resolved, BP stable. Small pocket hematoma, dressing dry, intact. No fever, WBC back to normal. Clinical presentation consistent with small, late pocket hematoma. No evidence of sepsis. If no growth from cultures today, may be discharged home today. Post ICD implant activity limitations and implant site care were discussed. Keep the dressing dry and in place, until seen for follow-up, next Wednesday. Continue Augmentin p.o. for 5 days. For persistent sinus tachycardia, Coreg was increased, digoxin was added, we are going to hold lisinopril and hydralazine for now, with plan to resume, if he remains stable. Origin of tachycardia still unclear at this time, echo showed underfilled LV and normal pulmonary pressure, on workup, there was no evidence of pericardial effusion, pulmonary embolization, sepsis. The tachycardia did not resolve with IV fluid challenge, but slowly improved with increased beta-rosalva, digoxin and antibiotics. Serial hematocrit did not show evidence of large blood loss and imaging with CT scan showed no evidence of intracavitary bleed. The groin access site from the EP study remained intact. Hyperbilirubinemia, normal LFTs, could be secondary to resolving hematoma. Will recheck in a few weeks.
[2017-05-15] MEDS: oxyCODONE/ACETAMINOPHEN 5-325 MG TABLET PO PRN (11:14)
[2017-05-15 11:45] VITALS: BP 107/62
[2017-05-15] MEDS: DIGOXIN 0.25 MG TABLET PO SCH (12:13)
[2017-05-15] MEDS ORDERED: AMOXICILLIN/CLAV 875 MG TABLET PO SCH (21:00)
--- NOTE | 2017-05-18 10:57 | Physician Query Form ---
CLICK EDIT DOCUMENT TO SELECT QUERY ANSWER --> OK --> SIGN Genny Hare RN, CCDS Certified Clinical Pin Inserter Regulator W) [phone] (f) [phone] [email or web address] PROVIDERS: Make your selection(s) from the choices in EACH section by typing an "x" and enter comments in the comment section. Please use your independent medical judgment in providing your response. This request does not imply that any particular answer is desired or expected. CLINICAL INDICATORS: (Providers should not edit this section) The medical record indicates that the patient was admitted with VT, " Nonischemic Cardiomyopathy", "05/13 Echo: no pericardial effusion. LVEF 45-55 and the patient had a "Biventricular ICD implant". Based on a history of CHF, can you please clarify the type? Please provide further specificity regarding CHF. TYPE: ( ) Systolic (HFrEF - heart failure with reduced systolic function/EF) ( ) Diastolic (HFpEF - heart failure with preserved systolic function/EF) (x) Combined Systolic/Diastolic ( ) Other, please specify: ( ) Clinically unable to determine ( ) Past Medical History of Systolic CHF ( ) Past Medical History of Diastolic CHF ( ) Clinically unable to determine COMMENTS: PLEASE ALSO DOCUMENT RESPONSE IN PROGRESS NOTES AND/OR DISCHARGE SUMMARY Use of terms such as suspected, likely, or probable (associated with a specific diagnosis that is being evaluated, monitored, or treated as if it exists) are acceptable and can be restated in the discharge summary if not ruled out. MTDD
== END 2017-05-15 15:15 | disposition home or self-care (01) | DRG 227 ==
LOC: N.CL 05:56 → N.TELEN 13:56
PROVIDERS: ADMIT Internal Medicine Clinical Cardiac Electrophysiology; ATTEND Internal Medicine Clinical Cardiac Electrophysiology